=== PATIENT | female | born 1955 | race Caucasian/White ===

== ENCOUNTER 2016-11-15 10:02 | Outpatient (CLI) | payer MEDICARE ==
[~2016-11-15] VITALS: Ht 180.3 cm; Wt 119.4 kg
[~2016-11-15 10:02] MED LIST: AMAN100T PO; AMIT25TA9 PO; ASP81CT PO; ASP81TEC PO; BACL10TA PO; CALC-69 PO; CHOL200018 PO; CHOL400C8 PO; CPR250T PO; DIAZ-345 PO; DOXY100C2 PO; ENAL10TA PO; ENALAPRIL; ERGO2000 PO; ESTR0.5T PO; ESTR1PAT28 TOP; EXPECTORANT PO; FLC1T PO; FOLI1TAB24 PO; HCT25T PO; MDR10T PO; MECL25TA56 PO; MEDR2.5T PO; MELO-195 PO; METO100T2 PO; METO25TA PO; METO25TA2 PO; MTX2.5T PO; MULT1CAP27 PO; NAPR220C11 PO; OMEP-10 PO; OMG1KC PO; POLY17PO23 PO; PRAV10TA23 PO; PRAV40TA PO; PRAV80TA2 PO; PRD20T PO; SCP1.5TD TOP; SIMV80TA3 PO; TRZS2T PO; [UNRECOGNIZED DRUG - OTHER] PO
--- OUTSIDE RECORDS SUMMARY | 2016-11-15 10:06 | XMS REPORT | Continuity of Care Document ---
Author Author [facility] Organization [facility] Address Unknown Phone Unavailable Care Team Providers Care Assistant Manager Retail Name Role Phone Unverified, Unverified PCP Unavailable Source Comments Some departments are not documenting in the electronic medical record. If you do not see the information that you expected, contact Release of Information in the Health Information Management department at [phone] for further assistance in locating additional records.[facility] Active Allergies and Adverse Reactions No Known Allergies Current Medications Prescription Sig. Disp. Refills Start End Date Status Date Enalapril Maleate (Bulk) Use as directed. Active 100 % Powd metoprolol XL (TOPROL XL) Take 100 mg by mouth Active 100 mg tablet daily. hydrochlorothiazide Take 25 mg by mouth Active (HYDRODIURIL) 25 mg daily. tablet pravastatin (PRAVACHOL) Take 10 mg by mouth Active 10 mg tablet daily. medroxyPROGESTERone Take 10 mg by mouth Active (PROVERA) 10 mg tablet daily. doxycycline (VIBRAMYCIN) Take 100 mg by mouth Active 100 mg tablet twice daily. estradiol(+) (CLIMARA) Apply 1 Patch to top of Active 0.025 mg/24 hr patch skin as directed every 7 days. MULTIVITAMINS WITH Take by mouth. Active FLUORIDE (MULTI-VITAMIN PO) NAPROXEN SODIUM (ALEVE Take by mouth. Active PO) OMEPRAZOLE (PRILOSEC PO) Take by mouth. Active DOCOSAHEXANOIC ACID/EPA Take by mouth. Active (FISH OIL PO) ERGOCALCIFEROL (VITAMIN Take by mouth. Active D2) (VITAMIN D PO) methotrexate 2.5 mg Take 4 tab one day weekly 48 Tab 3 08/22/20 Active tablet 12 folic acid (FOLVITE) 1 mg Take 1 Tab by mouth 90 Tab 3 08/22/20 Active tablet daily. 12 amitriptyline (ELAVIL) 25 Take 1 Tab by mouth at 90 Tab 3 08/22/20 Active mg tablet bedtime daily. 12 Amantadine 100 mg Tab Take 1 Tab by mouth twice 180 Tab 3 08/22/20 Active daily. 12 baclofen (LIORESAL) 10 mg Take 1 Tab by mouth five 750 Tab 3 12/23/19 Active tablet times daily. 13 Terazosin 2 mg Tab Take 1 Tab by mouth 90 Tab 3 02/21/20 Active daily. 13 Active Problems Problem Noted Date MS (multiple sclerosis) ([facility]) 08/22/2012 Overview: Multiple Sclerosis Subtype: Secondary progressive Symptom onset: 1977 Date of Diagnosis: 2004 Prior Medication failures:Rebif Present DMD Methotrexate Last MRI 2010 Multiple focal areas of abnormal signal intensity in the periventricular white matter with no change since 2006 L ast Assessment & Plan: Very slow progression One brief spell of vertigo Continue Baclofen and Vitamin D Continue quarterly CBC, CMP Continue Amantadine Continue to exercise Social History Tobacco Use Types Packs/Day Years Used Date Never Smoker Alcohol Use Drinks/Week oz/Week Comments No Last Filed Vital Signs Vital Sign Reading Time Taken Blood Pressure 131/85 02/20/2013 11:58 AM CDT Pulse 75 02/20/2013 11:58 AM CDT Temperature - - Respiratory Rate - - Height 1.803 m (5' 11") 02/20/2013 11:58 AM CDT Weight 118.842 kg (262 lb) 02/20/2013 11:58 AM CDT Body Mass Index 36.56 02/20/2013 11:58 AM CDT Oxygen Saturation - - Plan of Care Health Maintenance Due Date Last Done Comments Physical (Comprehensive) 1961 Exam Pertussis Vaccine 1965 Tetanus Vaccine 1971 Cervical Cancer Screening 1975 Breast Cancer Screening 1994 Colorectal Cancer 2004 Screening Shingles Vaccine 2014 Influenza Vaccine 06/07/2016 Results from Last 3 Months Not on file
[2016-11-15] MEDS ORDERED: ATOR40TA70 PO (10:23)
[2016-11-15] MEDS ORDERED: CALC-794 PO (10:23)
[2016-11-15] MEDS ORDERED: TRAM50TA2 PO (10:23)
[2016-11-15 10:30] VITALS: BP 127/87
[2016-11-15 11:09] LABS: BASOPHILS % (AUTO) 1 % (0-10); EOSINOPHILS # (AUTO) 0.2 10^3/uL (0.0-0.3); EOSINOPHILS % (AUTO) 6 % (0-10); LYMPHOCYTES # (AUTO) 1.3 X 10^3 (1.0-4.0); LYMPHOCYTES % (AUTO) 29 % (12-44); MEAN CORPUSCULAR HEMOGLOBIN 29 PG (25-34); MEAN CORPUSCULAR HGB CONC 34 G/DL (32-36); MEAN CORPUSCULAR VOLUME 86 FL (80-99); MEAN PLATELET VOLUME 10.2 FL (7.4-10.4); MONOCYTES # (AUTO) 0.4 X 10^3 (0.0-1.0); MONOCYTES % (AUTO) 9 % (0-12); NEUTROPHILS # (AUTO) 2.4 X 10^3 (1.8-7.8); NEUTROPHILS % (AUTO) 55 % (42-75); PLATELET COUNT 297 10^3/uL (130-400); RED BLOOD COUNT 4.58 10^6/uL (4.35-5.85); WHITE BLOOD COUNT 4.3 10^3/uL (4.3-11.0)
[2016-11-15 11:14] LABS: BILIRUBIN,URINE NEGATIVE (NEGATIVE); KETONES,URINE NEGATIVE (NEGATIVE); LEUKOCYTE ESTERASE ,URINE NEGATIVE (NEGATIVE); NITRITE,URINE NEGATIVE (NEGATIVE); PH,URINE 7 (5-9); PROTEIN,URINE NEGATIVE (NEGATIVE); UROBILINOGEN,URINE NORMAL (NORMAL)
[2016-11-15 11:20] LABS: INR 0.9 (0.8-1.4); PROTHROMBIN TIME PATIENT 11.6 SEC (12.2-14.7)
[2016-11-15 11:26] LABS: ANION GAP 10 MMOL/L (5-14); BLOOD UREA NITROGEN 16 MG/DL (7-18); BUN/CREATININE RATIO 20; CALCIUM 9.2 MG/DL (8.5-10.1); CARBON DIOXIDE 26 MMOL/L (21-32); CHLORIDE 104 MMOL/L (98-107); CREATININE SERUM 0.81 MG/DL (0.60-1.30); GFR ESTIMATED > 60; GLUCOSE 90 MG/DL (70-105); POTASSIUM 3.6 MMOL/L (3.6-5.0); SODIUM 140 MMOL/L (135-145)
[2016-11-15 11:28] LABS: WBC,URINE RARE /HPF
--- NOTE | 2016-11-15 15:05 | Diagnostic Imaging Report ---
INDICATION: Preop knee replacement. FINDINGS: The lungs are clear. The heart and vessels are normal. There is no effusion or pneumothorax. IMPRESSION: No acute-appearing abnormality. Dictated by: Dictated on workstation # [id number]
== END 2016-11-15 15:24 | disposition home or self-care (01) ==
LOC: PREOP 10:02
PROVIDERS: ATTEND Orthopaedic Surgery
DX: Z01.818 Encounter for other preprocedural examination (principal); Z01.812 Encounter for preprocedural laboratory examination; M17.12 Unilateral primary osteoarthritis, left knee; M79.662 Pain in left lower leg; R53.83 Other fatigue; I10 Essential (primary) hypertension; Z22.322 Carrier or suspected carrier of Methicillin resistant Staphylococcus aureus; Z11.2 Encounter for screening for other bacterial diseases
CPT/HCPCS: 36415; 71020; 80048; 81000; 85025; 85610; 86850; 86900; 86901; 87081; 93005

== ENCOUNTER 2016-11-27 08:49 | Inpatient (IN) | payer MEDICARE ==
[~2016-11-27] VITALS: Ht 180.3 cm; Wt 119.4 kg
[~2016-11-27 08:49] MED LIST changes: +ATOR40TA70 PO; +CALC-794 PO; +TRAM50TA2 PO
[2016-11-27] MEDS ORDERED: ROPIVACAINE 5MG/ML 30ML VIAL ONE (09:28)
[2016-11-27] MEDS ORDERED: MIDAZOLAM 2 MG/2 ML (VERSED) VIAL ONE (09:29)
[2016-11-27] MEDS ORDERED: ceFAZolin 2 GM/50 ML NS 50 ML IV ONE (09:33)
[2016-11-27 09:40] VITALS: BP 134/85
[2016-11-27] MEDS ORDERED: CATHETER FLUSH 10 ML SYR IV PRN (09:45)
[2016-11-27] MEDS ORDERED: ceFAZolin 2 GM/NS 50 ML IV ONE (09:45)
[2016-11-27] MEDS ORDERED: GENTAMICIN 40 MG/ML 2 ML INJ SDV ONE ×2 (09:47→09:48)
[2016-11-27] MEDS ORDERED: SEVOFLURANE (ULTANE) 15 ML INHAL SOLN ONE ×2 (10:11→12:10)
[2016-11-27] MEDS ORDERED: LACTATED RINGERS 1,000 ML IV ONE ×3 (10:11→12:10)
[2016-11-27] MEDS ORDERED: ONDANSETRON 4 MG/2 ML (SDV) Z0FRAN ONE (10:11)
[2016-11-27] MEDS ORDERED: fentaNYL INJECTION 100 MCG/2 ML AMP ONE (10:11)
[2016-11-27] MEDS ORDERED: proPOfol 200 MG/20 ML (DIPRIVAN) VIAL IV ONE ×2 (10:11→11:00)
[2016-11-27] MEDS: LACTATED RINGERS 1,000 ML IV SCH ×2 (10:36→12:30)
--- NOTE | 2016-11-27 10:36 | Progress Note-Pre Operative ---
Pre-Operative Progress Note H&P Reviewed The H&P was reviewed, patient examined and no changes noted. Date H&P Reviewed: Nov 27, 2016 Time H&P Reviewed: 10:00 Pre-Operative Diagnosis: Primary Osteoarthritis Left Knee GREGORY MERCHANT DO Nov 27, 2016 10:36 am
[2016-11-27] MEDS ORDERED: TXA MC ONE ×5 (11:45)
[2016-11-27] MEDS ORDERED: INTRA ARTICULAR MC ONE ×5 (11:45)
[2016-11-27 12:00] VITALS: BP 116/58
--- NOTE | 2016-11-27 12:56 | Progress Note-Post Operative ---
Post-Operative Progess Note Project Intern Nik Cook HAMMER FITTERJessicaC Pre-Operative Diagnosis Primary Osteoarthritis Left Knee Post-Operative Diagnosis SAME Post-Op Procedure Note Date of Procedure: Nov 27, 2016 Name of Procedure: Left TKA Anesthesia Type general Estimated blood loss (mL): 150 NIK COOK APRN Nov 27, 2016 12:56 pm
[2016-11-27] MEDS ORDERED: PROMETHAZINE INJ 25 MG/ML (PHENERGAN) AMP IVP PRN ×2 (13:00)
[2016-11-27] MEDS ORDERED: morphine INJ 10 MG/ML 1ML (SYR OR VIAL) IVP PRN (13:00)
[2016-11-27] MEDS ORDERED: ONDANSETRON 4 MG/2 ML (SDV) Z0FRAN IVP PRN (13:00)
[2016-11-27] MEDS ORDERED: D5 1/2 NS 1000 ML IV SOLUTION 1,000 ML IV SCH (13:00)
[2016-11-27] MEDS ORDERED: diphenhydrAMINE 50 MG/ML INJ (BENADRYL) IV PRN (13:00)
[2016-11-27] MEDS ORDERED: BISACODYL 10 MG SUPP (DULCOLAX) PR PRN (13:00)
[2016-11-27] MEDS ORDERED: ONDANSETRON 4 MG/2 ML (SDV) Z0FRAN IV ONE (13:15)
[2016-11-27] MEDS ORDERED: fentaNYL INJECTION 100 MCG/2 ML AMP IV PRN (13:15)
[2016-11-27] MEDS ORDERED: morphine INJ 10 MG/ML 1ML (SYR OR VIAL) IV PRN (13:15)
--- OUTSIDE RECORDS SUMMARY | 2016-11-27 13:23 | XMS REPORT | Continuity of Care Document ---
Author Author [facility] Organization [facility] Address Unknown Phone Unavailable Care Team Providers Care Classification Inspector Name Role Phone Unverified, Unverified PCP Unavailable Source Comments Some departments are not documenting in the electronic medical record. If you do not see the information that you expected, contact Release of Information in the Health Information Management department at [phone] for further assistance in locating additional records.[facility] Active Allergies and Adverse Reactions No Known [...] Problems Problem Noted Date MS (multiple sclerosis) ([facility]) 08/22/2012 Overview: Multiple Sclerosis Subtype: Secondary progressive [...]
--- NOTE | 2016-11-27 13:35 | Anesthesia-Peripheral Nerve Bl ---
Procedure Start/Stop Time Date of Procedure: Nov 27, 2016 Start Time: 09:43 Stop Time: 09:55 Peripheral Nerve Block Peripheral Nerve Blockade Risk/Benefits/Alternatives discussed, including IV injection leading to complications or seizures, nerve irritation or damage, pneumothorax, total spinal anesthesia, injection, and/or bleeding. Side Confirmed: LEFT Indication: Req Pain Mgmt by Surgeon Specifically requested for management of pain by:dr reyes Patient Condition Vital Signs Vital Signs Date Time Temp Pulse Resp B/P Pulse Ox O2 Delivery O2 Flow Rate FiO2 11/27/16 09:40 98.0 78 16 134/85 98 Room Air Patient Condition: Awake Procedure Prepartation: Chlorhexidine Position: Supine Mathews: Short-bevel Needle (s) Size: 22g 2" Technique: Injection through needle, Nerve Stimulation Motor response or parethesia o: quad response mA: 0.4 Depth (cm): 2 Sedation Given: Midazolam Dose (mg/mcg): 2 Injectate: ropivacaine Concentration %: 0.5 Volume (ml): 30 Epinephrine used: No Narrative Injection was made incrementally with constant monitoring. Blood Aspirated: Yes Pain on injection noted: No Normal Resistance on injection: Yes Events Events: None:easy well tolerated Sucess: Full evaluation-pending Patient Conditon Post Peripheral Nerve Block Post Peripheral Nerve Block Vital Signs: Blood Pressure: Systolic Diastolic Heart Rate Blood Pressure Systolic: 134 Blood Pressure Diastolic: 85 Pulse Rate (adult): 78 SWETHA CANO CRNA Nov 27, 2016 13:35
--- NOTE | 2016-11-27 14:02 | Diagnostic Imaging Report ---
INDICATION: Left knee replacement. AP and lateral views of the left knee are obtained. There are postoperative changes of total left knee arthroplasty. Prosthetic components are in good alignment. There is gas and fluid within the joint space with anterior skin jerry noted. No fracture is seen. IMPRESSION: Postoperative changes of recent total left knee arthroplasty without evidence of acute complication. Dictated by: Dictated on workstation # [id number]
[2016-11-27] MEDS: HYDROcodone/APAP 10 MG/325 MG (LORTAB) TAB PO PRN ×2 (14:51→18:31)
[2016-11-27] MEDS: BACLOFEN 10 MG (LIORESAL) TAB PO SCH ×2 (14:51→20:42)
[2016-11-27] MEDS ORDERED: METO-333 PO (15:14)
[2016-11-27] MEDS ORDERED: OMEP20CA12 PO (15:14)
[2016-11-27] MEDS ORDERED: ESTR0.5T PO (15:14)
[2016-11-27] MEDS ORDERED: HYDR25TA4 PO (15:14)
[2016-11-27] MEDS ORDERED: DOXY100C2 PO (15:14)
[2016-11-27] MEDS ORDERED: ENAL10TA PO (15:14)
[2016-11-27] MEDS ORDERED: AMIT25TA9 PO (15:14)
[2016-11-27] MEDS ORDERED: BACL10TA PO (15:14)
[2016-11-27] MEDS ORDERED: MEDR5TAB4 PO (15:14)
[2016-11-27] MEDS ORDERED: TERA2CAP4 PO (15:14)
[2016-11-27] MEDS ORDERED: MECLIZINE 25 MG (ANTIVERT) TAB PO PRN (15:30)
[2016-11-27] MEDS ORDERED: POLYETHYLENE GLYCOL 17 GM (MIRALAX) PACK PO PRN (15:30)
[2016-11-27] MEDS ORDERED: NON-FORMULARY MEDICATION 1 EA EA (Doxycycline Hyclate 100 MG) PO SCH (15:30)
[2016-11-27 16:00] VITALS: BP 121/63
[2016-11-27] MEDS: KETOROLAC 15 MG/ML VIAL IVP PRN (17:54)
[2016-11-27] MEDS: ceFAZolin 2 GM/50 ML NS 50 ML IV SCH (17:56)
[2016-11-27] MEDS: D5 1/2 NS 1000 ML IV SOLUTION 1,000 ML IV SCH (17:56)
[2016-11-27 20:00] VITALS: BP 97/56
[2016-11-27] MEDS: AMITRIPTYLINE 25 MG (ELAVIL) TAB PO SCH (20:42)
[2016-11-27] MEDS: meTOprolol TARTRATE 25 MG (LOPRESSOR) TABLET PO SCH (20:43)
[2016-11-27] MEDS: TERAZOSIN 2 MG (HYTRIN) CAP PO SCH (20:43)
[2016-11-27] MEDS: PANTOPRAZOLE 20 MG TABLET (PROTONIX) PO SCH (20:43)
[2016-11-27] MEDS ORDERED: OMEPRAZOLE 20 MG (PriLOSEC) CAP NON-FORMULARY PO SCH (21:00)
[2016-11-28] VITALS: BP 117/59
[2016-11-28] MEDS: ceFAZolin 2 GM/50 ML NS 50 ML IV SCH (01:51)
[2016-11-28] MEDS: HYDROcodone/APAP 10 MG/325 MG (LORTAB) TAB PO PRN ×4 (03:40→18:14)
[2016-11-28 04:00] VITALS: BP 119/67
[2016-11-28 04:56] LABS: MEAN PLATELET VOLUME 10.2 FL (7.4-10.4); RED BLOOD COUNT 3.99 10^6/uL (4.35-5.85); RED CELL DISTRIBUTION WIDTH 13.2 % (10.0-14.5); WHITE BLOOD COUNT 6.3 10^3/uL (4.3-11.0)
[2016-11-28 05:13] LABS: INR 1.1 (0.8-1.4); PROTHROMBIN TIME PATIENT 13.6 SEC (12.2-14.7)
[2016-11-28 05:19] LABS: ANION GAP 12 MMOL/L (5-14); BLOOD UREA NITROGEN 10 MG/DL (7-18); BUN/CREATININE RATIO 13; CALCIUM 8.6 MG/DL (8.5-10.1); CARBON DIOXIDE 25 MMOL/L (21-32); CHLORIDE 103 MMOL/L (98-107); CREATININE SERUM 0.79 MG/DL (0.60-1.30); GFR ESTIMATED > 60; GLUCOSE 91 MG/DL (70-105); POTASSIUM 3.3 MMOL/L (3.6-5.0); SODIUM 140 MMOL/L (135-145)
[2016-11-28] MEDS: D5 1/2 NS 1000 ML IV SOLUTION 1,000 ML IV SCH ×2 (05:45→18:12)
[2016-11-28 08:00] VITALS: BP 118/72
[2016-11-28] MEDS: ENOXAPARIN 40 MG/0.4 ML (LOVENOX) SYR SC SCH (08:07)
[2016-11-28] MEDS: ASPIRIN E.C. 325 MG (ECOTRIN) TABLET PO SCH (08:07)
[2016-11-28] MEDS: BACLOFEN 10 MG (LIORESAL) TAB PO SCH ×3 (08:08→20:36)
[2016-11-28] MEDS: meTOprolol TARTRATE 25 MG (LOPRESSOR) TABLET PO SCH ×2 (08:10→20:36)
[2016-11-28] MEDS: MEDROXYPROGESTERONE 5 MG TAB PO SCH (08:13)
[2016-11-28] MEDS: ESTRADIOL 0.5 MG TAB PO SCH (08:16)
[2016-11-28] MEDS ORDERED: MEDROXYPROGESTERONE ACETATE PO SCH (09:00)
--- NOTE | 2016-11-28 09:42 | Anesthesia-General Post-Op ---
General Patient Condition Mental Status/LOC: Same as Preop Cardiovascular: Satisfactory Nausea/Vomiting: Absent Respiratory: Satisfactory Pain: Controlled Complications: Absent Post Op Complications Complications None Follow Up Care/Instructions Patient Instructions None needed. Anesthesia/Patient Condition Patient Condition Patient is doing well, no complaints, stable vital signs, no apparent adverse anesthesia problems. No complications reported per nursing. D/C home per [facility] Criteria: No CAMPOS TRINH CRNA Nov 28, 2016 09:42
--- NOTE | 2016-11-28 09:42 | Physical Therapy Evaluation ---
PT Evaluation-General Medical Diagnosis Admission Date Nov 27, 2016 at 08:49 Onset Date: Nov 27, 2016 Therapy Diagnosis Therapy Diagnosis: Rehab s/p (L) TKR Height/Weight Height (Feet): 5 Height (Inches): 11.00 Weight (Pounds): 263 Weight (Ounces): 5.0 Precautions Precautions/Isolations: Standard Precautions Weight Bear Status Weight Bearing Restriction: Weight Bearing/Tolerated Referral Physician: Galindo Acosta DO Reason for Referral: Evaluation/Treatment Medical History Additional Medical History (R) TKR (05), MS, vertigo Current History post op (L) TKR Reviewed History: Yes Social History Home: Single Level Prior/Core FIM Prior Level of Function Functional [place] Measure 0=Not Assessed/NA 4=Minimal Assistance 1=Total Assistance 5=Supervision or Setup 2=Maximal Assistance 6=Modified [place] 3=Moderate Assistance 7=Complete [place] Bed Mobility: 6 Transfers (B,C,W/C) (FIM): 6 Gait: 6 Locomotion: 6 pt uses at 4ww and a power chair as needed. PT Evaluation-Current Subjective 5/10 (L) knee pain during ambulation. Pain Numeric Pain Scale: 5-Moderate Pain Location: Left Location Body Site: Knee Pain Description: Ache, Dull Pt/Family Goals Return home. Objective Patient Orientation: Person, Place, Time, Situation Problem Solving: Good Attachments: IV ROM/Strength ROM Lower Extremities (L) knee PROM 0-65deg Strenght Lower Extremities 3-/5 (L) hip and knee MMT Neuromuscular (Tone, Coordination, Reflexes) Foot drop (L), wears an AFO Sensory Sensation Right Lower Extremit: Intact Sensation Left Lower Extremity: Intact Transfers Functional [place] Measure 0=Not Assessed/NA 4=Minimal Assistance 1=Total Assistance 5=Supervision or Setup 2=Maximal Assistance 6=Modified [place] 3=Moderate Assistance 7=Complete [place] Transfers (B, C, W/C) (FIM): 5 Scootin Rollin Supine to/from Sit: 5 Sit to/from Stand: 5 Gait Mode of Locomotion: Both Anticipated Mode of Locomotion: Walk Gait (FIM): 1 Distance (FIM): 1=up to 49 ft Distance: 30FT Gait Level of Assist: 1 Gait Persons Needed: 1 Gait Assistive Device: Walker 4 Wheeled Comments/Gait Description Became dizzy/lightheaded after 30ft. Back to bed. Stairs If not tested on admit;explain Not assessed due to dizziness and needing to sit. Balance Sitting Static: Normal Sitting Dynamic: Normal Standing Static: Good Standing Dynamic: Fair Assessment/Needs Pt has limited (L) LE strength and limited knee flexion tolerance. Rehab Potential: Good PT Short Term Goals Short Term Goals Time Frame: Dec 05, 2016 Transfers (B,C,W/C) (FIM): 6 Gait (FIM): 3 Distance (FIM): 3=150 ft Gait Level of Assist: 3 Gait Assistive Device: Walker 4 Wheeled # of Steps: 4 Stairs Level of Assist: 5 PT Plan Problem List Problem List: Activity Tolerance, Functional Strength, Safety, Gait, Transfer, ROM Treatment/Plan Treatment Plan: Continue Plan of Care Treatment Duration: Dec 05, 2016 # of days/week 7 Visits Per Week: 12 Pt/Family Agrees w/Plan: Yes Time/GCodes Time In: 09 Time Out: 09 Total Billed Treatment Time: 40 Total Billed Treatment 1, evlowc 30, gt 10 ROBERTO PARRISH PT Nov 28, 2016 09:42
[2016-11-28] MEDS: HYDROCHLOROTHIAZIDE 25 MG (HCTZ) TAB PO SCH (11:18)
[2016-11-28] MEDS: ENALAPRIL 10 MG (VASOTEC) TAB PO SCH (11:19)
[2016-11-28 12:00] VITALS: BP 128/75
--- NOTE | 2016-11-28 12:28 | Progress Note (SOAP) ---
Subjective Subjective/Events-last exam POD #1 s/p left tKA, doing well, no complaints. Objective Exam Vital Signs Date Time Temp Pulse Resp B/P Pulse Ox O2 Delivery O2 Flow Rate FiO2 11/28/16 08:00 98.7 87 18 118/72 94 Room Air 11/28/16 04:00 97.9 87 18 119/67 97 Room Air 11/28/16 00:00 98.6 80 18 117/59 95 Room Air 11/27/16 20:00 98.5 75 18 97/56 95 Room Air 11/27/16 16:00 96.9 73 16 121/63 98 Room Air 11/27/16 13:50 96 Room Air I & O 11/28/16 06:59 Intake Total 3530 ml Output Total 1500 ml Balance 2030 ml Capillary Refill : General Appearance: No Apparent Distress Neurologic/Psychiatric: Alert Oriented x3 No Motor/Sensory Deficits Normal Mood/Affect Skin: Normal Color Warm/Dry (dressing left knee spotty sang drainage, controlled, otherwise dry) Results Lab Laboratory Tests 11/28/16 04:19: Anion Gap 12, BUN/Creatinine Ratio 13, Blood Urea Nitrogen 10, Calcium Level 8.6 , Carbon Dioxide Level 25, Chloride Level 103, Creatinine 0.79, Estimat Glomerular Filtration Rate > 60, Glucose Level 91, Hematocrit 35, Hemoglobin 11.5, INR Comment 1.1, Mean Corpuscular Hemoglobin 29, Mean Corpuscular Hemoglobin Concent 33, Mean Corpuscular Volume 87, Mean Platelet Volume 10.2, Platelet Count 258, Potassium Level 3.3L, Prothrombin Time 13.6, Red Blood Count 3.99L, Red Cell Distribution Width 13.2, Sodium Level 140, White Blood Count 6.3 Assessment/Plan Assessment/Plan Assess & Plan/Chief Complaint A: s/p left TKA POD 1 P: plan to Dc to home with [facility] tomorrow or Saturday Diagnosis/Problems: Clinical Quality Measures DVT/VTE Risk/Contraindication: Risk Factor Score Per Nursin RFS Level Per Nursing on Admit: 4+=Very High NIK COOK APRN Nov 28, 2016 12:28 pm
[2016-11-28] MEDS ORDERED: DOXYCYCLINE 100 MG (VIBRAMYCIN) TABLET PO SCH (13:00)
--- NOTE | 2016-11-28 13:15 | OPERATIVE REPORT ---
PROCEDURE PHYSICIAN: GREGORY MERCHANT DATE OF PROCEDURE: 11/27/2016 PREOPERATIVE DIAGNOSIS: Primary osteoarthritis, left knee. POSTOPERATIVE DIAGNOSIS: Primary osteoarthritis, left knee. PROCEDURE: Total knee arthroplasty. SURGEON: Karla BARNARDGROCERY CLERK SELLING: NAM Jaimes Surgical cutter first duties: Leonides Cooper was utilized throughout the entire procedure for the patient positioning, retraction, placement of total knee implant components, wound closure, dressing application and patient transfer. ANESTHESIA: General with femoral nerve block INDICATIONS AND FINDINGS: The patient is a 61-year-old and female seen with chief complaint of progressive left knee pain, nonresponsive to conservative treatment. The patient demonstrated valgus deformity with collapse of the lateral compartment. The patient was taken to surgery where a total knee arthroplasty was performed without complication on the left, utilizing the Biomet AutomateItguard total knee system utilizing a press-fit 72.5 mm femoral component. A cemented 75 mm fixed I-Beam tibial component, a 34 mm three-pronged, all polyethylene cemented thin patellar component with a 10 mm anterior stabilized tibial bearing implant. Palacos bone cement was utilized as well. PROCEDURE IN DETAIL: The patient was seen by anesthesia preoperatively and under Doppler guidance a femoral nerve block was performed on the left to decrease postop pain and decrease amount of medication required during the surgical procedure. The patient was transported the operating room, where general inhalation anesthetic was administered. A well-padded pneumatic tourniquet was placed about the upper aspect of the left thigh. A ChloraPrep and sterile drape of the left lower extremity was performed. The left leg was elevated, exsanguinated, and the tourniquet inflated to 300 mmHg pressure. An anterior longitudinal midline incision was made over the anterior surface of the left knee. The incision was deepened through a medial parapatellar incision. Soft tissue periosteal dissection was performed off the proximal medial tibia and the patella was subluxed laterally. Osteophytes formation of the distal femur was removed with a bone rongeur. A photogrammetry airplane pilot hole was then drilled in the distal femur and intramedullary edwin was inserted utilizing a 6 degrees valgus cutting angle, a distal femoral cutting guide was assembled and distal femoral osteotomy was completed. The distal femur was sized to a 72.5 mm femoral component. A four-way cutting guide was assembled. Anterior, posterior and chamfer cuts of the distal femur were made. The tibia was subluxed anteriorly. Remnants of the medial and lateral menisci as well as the anterior cruciate ligament were excised. A photogrammetry airplane pilot hole then drilled in the proximal tibia and intramedullary edwin was inserted measuring off the exposed bone over the lateral tibial plateau. A proximal tibial cutting guide was assembled and a proximal tibial osteotomy was completed. Attempts were made at placing the knee in full extension with a 10 mm spacer. The patient continued to have lack of full extension; therefore additional 2 mm of bone was resected from the distal femur. An additional chamfer cuts were made. The knee was then sized and could be extended with 10 mm spacer in extension, along with instability in flexion. Osteophyte formation from the patellar rim was removed with a bone rongeur. The posterior aspect of the patella was resected through a cutting guide and drilled through a drill guide. Provisional components were inserted. The knee was cycled through a range of motion. The rotation of the tibial component was noted and marked on the proximal tibia. The proximal tibia was then broached to accept the I-Beam stem portion of the tibial implant. The bony surfaces were irrigated extensively with normal saline solution. Palacos bone cement was then mixed. This was pressurized in the proximal tibia and the tibial component was cemented in place. The femoral component was press-fit in place. The patellar component was cemented in place and held with a clamp. The knee was then maintained in full extension with the provisional 10 mm tibial bearing implant. Excessive cement was removed and the cement was allowed to set. The provisional tibial bearing implant was then removed. An anterior stabilized tibial bearing implant was then inserted and locked anteriorly with a locking bar. The knee was cycled through a range of motion with central tracking of the patella and full extension obtained with no instability on drawer testing and knee in flexion. The tourniquet was released. Hemostasis was obtained with electrocautery. The knee was placed in 90 degrees of flexion. The medial retinaculum was closed with multiple interrupted [id number] sutures of number 1 Vicryl reinforced with a running suture of number 1 STRATAFIX. The knee itself was infiltrated with combination of Toradol, ropivacaine, morphine and tranexamic acid. Subcutaneous tissues were closed with interrupted 0 and 2-0 Vicryl suture. The skin was closed with stainless steel jerry. An Adaptic Neosporin bulky dressing was placed about the left knee. The patient was awakened and was transported postop recovery with anesthesia personnel present in satisfactory condition. Job ID: [id number] Dictated Date: 11/27/2016 23:57:50 Per Assessment Nurse Date: 11/28/2016 13:03:32 / [email or web address]
--- NOTE | 2016-11-28 13:55 | Physical Therapy Daily Note ---
PT Daily Note-Current Subjective Patient in recliner pre tx, just finishing up with OT, agrees to PT. Pain Numeric Pain Scale: 2 Location: Left Location Body Site: Knee Appearance Patient in bed post tx with nurse call, phone, halle, SCD's, CPM donned increased to 56 degrees Mental Status Patient Orientation: Normal For Age Attachments: IV Transfers Functional [place] Measure 0=Not Assessed/NA 4=Minimal Assistance 1=Total Assistance 5=Supervision or Setup 2=Maximal Assistance 6=Modified [place] 3=Moderate Assistance 7=Complete IndependenceIRFPAI Quality Coding Scale 6 Independent with activity with or without an assistive device 5 Patient requires set up or clean up by helper. Patient completes activity by themselves 4 Supervision or touching assist (CGA). [place] provide cues , steadying assist 3 The helper provides less than half the effort to complete the activity 2 The helper provides more than half the effort to complete the activity 1 Dependent. The helper does all the effort to complete an activity 7 Patient refused to complete or attempt activity 9 The patient did not perform the activity before the current illness or injury 88 Not attempted due to Medical conditions or safety concerns Transfers (B, C, W/C) (FIM): 4 Scootin Rollin Supine to/from Sit: 5 Sit to/from Stand: 4 needs min assist to get leg into and out of bed Gait Training Gait (FIM): 1 Distance: 40' Gait Level of Assist: 4 Gait Persons Needed: 1 Gait Assistive Device: FWW CGA, foot drop on left side with hip externally rotated, slow, antalgic Exercises Supine Ex: Ankle pumps, Quad Set, Heel Slides, Short Arc Quads, Straight leg raise Supine Reps: 10 Treatments bed mobility and transfers, ambulation, functional strengthening Assessment Current Status: Fair Progress improved ambulation PT Short Term Goals Short Term Goals Time Frame: Dec 05, 2016 Transfers (B,C,W/C) (FIM): 6 Gait (FIM): 3 Distance (FIM): 3=150 ft Gait Level of Assist: 3 Gait Assistive Device: Walker 4 Wheeled # of Steps: 4 Stairs Level of Assist: 5 PT Plan Problem List Problem List: Activity Tolerance, Functional Strength, Safety, Balance, Gait, Transfer, Bed Mobility, ROM Treatment/Plan Treatment Plan: Continue Plan of Care Treatment Plan: Bed Mobility, Education, Functional Activity [place], Functional Strength, Gait, Safety, Therapeutic Exercise, Transfers Treatment Duration: Dec 05, 2016 Visits Per Week: 12 Safety Risks/Education Patient Education: Gait Training, Transfer Techniques, Correct Positioning, Safety Issues Teaching Recipient: Patient Teaching Methods: Demonstration, Discussion Response to Teaching: Reinforcement Needed Time/GCodes Time In: 1330 Time Out: 1348 Total Billed Treatment Time: 18 Total Billed Treatment 1 visit GT 18 min ALEXA DANGELO PT Nov 28, 2016 13:55
[2016-11-28] MEDS: DIAZEPAM 5 MG (VALIUM) TABLET PO PRN (14:26)
--- NOTE | 2016-11-28 14:29 | Occupational Therapy Eval ---
OT Evaluation-General/PLF Medical Diagnosis Admission Date Nov 27, 2016 at 08:49 Medical Diagnosis: left TKA Onset Date: Nov 27, 2016 Therapy Diagnosis Therapy Diagnosis: decreased self care skills Height/Weight Height (Feet): 5 Height (Inches): 11.00 Weight (Pounds): 263 Weight (Ounces): 5.0 Precautions Precautions/Isolations: Standard Precautions Safety Interventions: None Weight Bear Status Weight Bearing Restriction: Weight Bearing/Tolerated Referral Physician: Galindo Acosta DO Medical History Additional Medical History MS, right TKA Current History pt s/p elective left TKA Social History Home: Single Level Current Living Status: Spouse Entry Into Home: Ramp ADL-Prior Level of Function ADL PLOF Comments Pt reports being independent with basic self care prior to surgery. Pt uses 4WW mostly, but has power w/c if needed. Pt states she uses chair to sit while cooking. Does light cleaning tasks. Has to take rest breaks during functional tasks secondary to fatigue from MS. DME/Equipment: Bath Bench, Grab Bars, Tall Toilet, Tub/Shower Drive Self: Yes OT Current Status Subjective Pt agrees to therapy this pm. Requests to use BSC. Pt report 3/10 left knee pain. Mental Status/Objective Patient Orientation: Person, Place, Time, Situation Attachments: IV Current Glasses/Contacts: Yes ADL-Treatment ADL-Current Pt sit to stand from chair with CGA. Transfer to BSC with minimal assistance using 4WW. Pt has slow movements, cues for safety. Pt able to complete toileting hygiene without assistance. CGA for standing balance during clothing management. Transfer back to chair with CGA. Pt sitting in chair with PT present after session. Functional [place] Measure 0=Not Assessed/NA 4=Minimal Assistance 1=Total Assistance 5=Supervision or Setup 2=Maximal Assistance 6=Modified [place] 3=Moderate Assistance 7=Complete IndependenceIRFPAI Quality Coding Scale 6 Independent with activity with or without an assistive device 5 Patient requires set up or clean up by helper. Patient completes activity by themselves 4 Supervision or touching assist (CGA). [place] provide cues , steadying assist 3 The helper provides less than half the effort to complete the activity 2 The helper provides more than half the effort to complete the activity 1 Dependent. The helper does all the effort to complete an activity 7 Patient refused to complete or attempt activity 9 The patient did not perform the activity before the current illness or injury 88 Not attempted due to Medical conditions or safety concerns Toileting (FIM): 4 (CGA) Toilet/Commode Transfer (FIM): 4 Education OT Patient Education: Rehab process Teaching Recipient: Patient Teaching Methods: Discussion Response to Teaching: Verbalize Understanding OT Short Term Goals Short Term Goals Transfers (B,C,W/C) (FIM): 6 1=Demonstrate adherence to instructed precautions during ADL tasks. 2=Patient will verbalize/demonstrate understanding of assistive devices/ modifications for ADL. 3=Patient will improve strength/tolerance for activity to enable patient to perform ADL's. OT Offset [place] Goals Care Home Goals Time Frame: Dec 05, 2016 Grooming(FIM): 6 Bathing(FIM): 5 Upper Body Dressing(FIM): 5 Lower Body Dressing(FIM): 5 Toileting(FIM): 6 Toilet/Commode Transfer(FIM): 6 Additional Goals: 1-Demonstrate ADL Tasks, 2-Verbalize Understanding, 3- ImproveStrength/[place] 1=Demonstrate adherence to instructed precautions during ADL tasks. 2=Patient will verbalize/demonstrate understanding of assistive devices/ modifications for ADL. 3=Patient will improve strength/tolerance for activity to enable patient to perform ADL's. OT Education/Plan Problem List/Assessment Assessment: Dependent Transfers, Impaired Self-Care Skills Pt s/p left TKA with decreased mobility and ADL functioning. Pt to benefit from skilled OT intervention for ADL training, transfers, strengthening, adaptive equipment training as needed, and home safety education to maximize level of function and allow safe return home with spouse. Discharge Recommendations Plan/Recommendations: Continue POC Treatment Plan/Plan of Care Treatment,Training & Education: Yes Patient would benefit from OT for education, treatment and training to promote independence in ADL's, mobility, safety and/or upper extremity function for ADL' s. Plan of Care: ADL Retraining, Functional Mobility, UE Funct Exercise/Act Treatment Duration: Dec 05, 2016 # of days/week 5 Visits Per Week: 5 Agreement: Yes Rehab Potential: Good Time/GCodes Start Time: 13:15 Stop Time: 13:30 Total Time Billed (hr/min): 15 Billed Treatment Time 1 visit, [place](15minutes) LISE RUSH OT Nov 28, 2016 14:28
[2016-11-28 16:00] VITALS: BP 155/72
[2016-11-28] MEDS: KETOROLAC 15 MG/ML VIAL IVP PRN (18:21)
[2016-11-28] MEDS ORDERED: BACLOFEN 10 MG (LIORESAL) TAB PO SCH (18:45)
[2016-11-28] MEDS: TERAZOSIN 2 MG (HYTRIN) CAP PO SCH (20:36)
[2016-11-28] MEDS: SENNA W/DOCUSATE (SENOKOT S) TABLET PO SCH (20:36)
[2016-11-28] MEDS: PANTOPRAZOLE 20 MG TABLET (PROTONIX) PO SCH (20:36)
[2016-11-28] MEDS: AMITRIPTYLINE 25 MG (ELAVIL) TAB PO SCH (20:36)
[2016-11-29] VITALS: BP 155/81
[2016-11-29] MEDS: DIAZEPAM 5 MG (VALIUM) TABLET PO PRN (03:04)
[2016-11-29] MEDS: KETOROLAC 15 MG/ML VIAL IVP PRN ×2 (06:36→11:48)
[2016-11-29] MEDS: HYDROcodone/APAP 10 MG/325 MG (LORTAB) TAB PO PRN ×2 (06:43→11:50)
[2016-11-29] MEDS: D5 1/2 NS 1000 ML IV SOLUTION 1,000 ML IV SCH (06:43)
--- NOTE | 2016-11-29 07:19 | Progress Note (SOAP) ---
Subjective Subjective/Events-last exam Pain is better controlled this morning, still having some muscle spasms, nausea controlled at this time. ambulated about 20 ft yesterday with assistance Objective Exam Vital Signs Date Time Temp Pulse Resp B/P Pulse Ox O2 Delivery O2 Flow Rate FiO2 11/29/16 00:00 97.8 97 20 155/81 97 Room Air 11/28/16 21:00 Room Air 11/28/16 16:00 98.5 83 16 155/72 98 Room Air 11/28/16 12:00 98.9 81 18 128/75 99 Room Air 11/28/16 09:00 96 Room Air 11/28/16 08:00 98.7 87 18 118/72 94 Room Air I & O 11/29/16 07:00 Intake Total 2420 ml Output Total 2600 ml Balance -180 ml Capillary Refill : Less Than 3 Seconds General Appearance: No Apparent Distress Respiratory: No Accessory Muscle Use Cardiovascular: Regular Rate, Rhythm Normal Peripheral Pulses Gastrointestinal: non tender soft Extremity: Normal Capillary Refill Normal Inspection Normal Range of Motion No Calf Tenderness Neurologic/Psychiatric: Alert Oriented x3 No Motor/Sensory Deficits Normal Mood/Affect Skin: Normal Color Warm/Dry (dressing left knee CDI) Assessment/Plan Assessment/Plan Assess & Plan/Chief Complaint A: s/p left TKA POD 2 P: Continue current treatment, possible DC today if she improves, Will speak with nursing staff this afternoon about discharge Diagnosis/Problems: Clinical Quality Measures DVT/VTE Risk/Contraindication: Risk Factor Score Per Nursin RFS Level Per Nursing on Admit: 4+=Very High NIK COOK APRN Nov 29, 2016 7:19 am
[2016-11-29] MEDS ORDERED: ASPI325T32 PO (07:21)
[2016-11-29] MEDS ORDERED: HYDR-3820 PO (07:21)
--- NOTE | 2016-11-29 07:25 | Discharge Inst-Home Health ---
Discharge Inst-to Home Health Patient Instructions Patient Instructions/FollowUp: f/u 2 1/2 weeks WBAT with walker CPM 6 hrs per day bilat STEPHON hose Polar care unit for home use may remove hose and dressing for regular shower then reapply Patient Problems: Primay OA left knee s/p left TKA Multiple sclerosis Goal: independence with ADL VIA [place], [place] DISCHARGE ORDERS Allergies: Coded Allergies: No Known Drug Allergies (Unverified , 11/15/16) Height (Feet): 5 Height (Inches): 11.00 Weight (Pounds): 263 Weight (Ounces): 5.0 Home Health Need/Face to Face Reason Pt Homebound unable to ambulate with out assistive device unable to ambulate over 50 ft I Have Seen Pt Khvt-un-Fhux: Yes Date of Face to Face: Nov 29, 2016 Discharged To: Home Diagnosis/Conditions HH Order: Primay OA left knee s/p left TKA Multiple sclerosis yes Consult/Follow Up/New Order *I certify that based on my findings, the following services are medically necessary Home Health Services: Services: Nursing Services, Physical Therapy-Evaluate & Treat My clinical findings support the need for the above services; see Diagnosis. [facility] Orders physical therapy 5x/week x 2 weeks to assist with ambulation and treat ROM nursing to remove jerry and apply steri strips on POD #10 Dicharge Diet: No Restrictions Discharge Medications: New, Converted, or Re-newed RX: RX on Chart I certify that this patient is under my care and that I, a nurse practitioner or a physician; a information assistant working with me, had a face to face encounter that - meets the physician face to face encounter requirements with this patient as dated. NIK COOK APRN Nov 29, 2016 7:24 am
[2016-11-29 07:33] LABS: MEAN PLATELET VOLUME 9.9 FL (7.4-10.4); RED BLOOD COUNT 3.8 10^6/uL (4.35-5.85); RED CELL DISTRIBUTION WIDTH 13.2 % (10.0-14.5); WHITE BLOOD COUNT 6.4 10^3/uL (4.3-11.0)
[2016-11-29 07:47] LABS: INR 1.1 (0.8-1.4); PROTHROMBIN TIME PATIENT 14.3 SEC (12.2-14.7)
[2016-11-29 07:51] LABS: ANION GAP 9 MMOL/L (5-14); BLOOD UREA NITROGEN 6 MG/DL (7-18); BUN/CREATININE RATIO 9; CALCIUM 8.4 MG/DL (8.5-10.1); CARBON DIOXIDE 24 MMOL/L (21-32); CHLORIDE 108 MMOL/L (98-107); CREATININE SERUM 0.65 MG/DL (0.60-1.30); GFR ESTIMATED > 60; GLUCOSE 135 MG/DL (70-105); POTASSIUM 3.3 MMOL/L (3.6-5.0); SODIUM 141 MMOL/L (135-145)
[2016-11-29 08:00] VITALS: BP 130/65
[2016-11-29] MEDS: ASPIRIN E.C. 325 MG (ECOTRIN) TABLET PO SCH (08:32)
[2016-11-29] MEDS: HYDROCHLOROTHIAZIDE 25 MG (HCTZ) TAB PO SCH (08:32)
[2016-11-29] MEDS: BACLOFEN 10 MG (LIORESAL) TAB PO SCH (08:32)
[2016-11-29] MEDS: ESTRADIOL 0.5 MG TAB PO SCH (08:33)
[2016-11-29] MEDS: meTOprolol TARTRATE 25 MG (LOPRESSOR) TABLET PO SCH (08:33)
[2016-11-29] MEDS: SENNA W/DOCUSATE (SENOKOT S) TABLET PO SCH (08:34)
[2016-11-29] MEDS: MEDROXYPROGESTERONE 5 MG TAB PO SCH (08:34)
[2016-11-29] MEDS: ENOXAPARIN 40 MG/0.4 ML (LOVENOX) SYR SC SCH (08:40)
[2016-11-29] MEDS: ENALAPRIL 10 MG (VASOTEC) TAB PO SCH (08:54)
--- NOTE | 2016-11-29 09:14 | Physical Therapy Daily Note ---
PT Daily Note-Current Subjective Patient is very agreeable to participate with PT. Pain Numeric Pain Scale: 5-Moderate Pain Location: Left Location Body Site: Knee Pain Description: Acute Mental Status Patient Orientation: Normal For Age Transfers Functional [place] Measure 0=Not Assessed/NA 4=Minimal Assistance 1=Total Assistance 5=Supervision or Setup 2=Maximal Assistance 6=Modified [place] 3=Moderate Assistance 7=Complete IndependenceIRFPAI Quality Coding Scale 6 Independent with activity with or without an assistive device 5 Patient requires set up or clean up by helper. Patient completes activity by themselves 4 Supervision or touching assist (CGA). [place] provide cues , steadying assist 3 The helper provides less than half the effort to complete the activity 2 The helper provides more than half the effort to complete the activity 1 Dependent. The helper does all the effort to complete an activity 7 Patient refused to complete or attempt activity 9 The patient did not perform the activity before the current illness or injury 88 Not attempted due to Medical conditions or safety concerns Transfers (B, C, W/C) (FIM): 4 Scootin Supine to/from Sit: 4 Sit to/from Stand: 4 assist with left LE with bed mobility Gait Training Gait (FIM): 2 Distance (FIM): 8=604-21 ft Distance: 125' Gait Level of Assist: 4 Gait Assistive Device: FWW CGA for safety; safe and functional gait with 4WW Exercises Supine Ex: Quad Set, Heel Slides, Straight leg raise Supine Reps: 15 (AAROM left LE) Seated Therapy Exercises: Long arc quads Seated Reps: 15 Assessment Patient tolerated treatment well and is in bed with CPM and polar pack in place. CPM 0-60 degrees. Patient is motivated to return to home on this date. PT Short Term Goals Short Term Goals Time Frame: Dec 05, 2016 Transfers (B,C,W/C) (FIM): 6 Gait (FIM): 3 Distance (FIM): 3=150 ft Gait Level of Assist: 3 Gait Assistive Device: Walker 4 Wheeled # of Steps: 4 Stairs Level of Assist: 5 PT Plan Treatment/Plan Treatment Plan: Continue Plan of Care Treatment Plan: Bed Mobility, Education, Functional Activity [place], Functional Strength, Gait, Safety, Therapeutic Exercise, Transfers Treatment Duration: Dec 05, 2016 Visits Per Week: 12 Time/GCodes Time In: 825 Time Out: 910 Total Billed Treatment Time: 45 Total Billed Treatment 1 visit EX x 2 25 min GT 20 min BERE PINEDA PT Nov 29, 2016 09:14
--- NOTE | 2016-11-29 10:46 | Occupational Ther Daily Note ---
OT Current Status-Daily Note Subjective Pt seen in room, agreeable to OT. No pain mentioned Appearance Alert, cooperative Mental Status/Objective Functional [place] Measure 0=Not Assessed/NA 4=Minimal Assistance 1=Total Assistance 5=Supervision or Setup 2=Maximal Assistance 6=Modified [place] 3=Moderate Assistance 7=Complete [place] ADL-Treatment Pt requested bath but did not want to shower. Setup sponge bath. Pt planned to dress later since she was going home and was able to verbalize modified technique for lower body dressing. DC pt with goals met to her satisfaction. Grooming (FIM): 6 (Mod I at sink, 4WW) Bathing (FIM): 5 Toileting (FIM): 6 (Mod I tall toilet, grab bars, 4ww) Toilet/Commode Transfer (FIM): 6 (Mod I tall toilet, grab bars, 4ww) Education OT Patient Education: Modified ADL techniques, Progress toward Goal/Update tx plan Teaching Recipient: Patient Teaching Methods: Discussion Response to Teaching: Verbalize Understanding OT Short Term Goals Short Term Goals Transfers (B,C,W/C) (FIM): 6 1=Demonstrate adherence to instructed precautions during ADL tasks. 2=Patient will verbalize/demonstrate understanding of assistive devices/ modifications for ADL. 3=Patient will improve strength/tolerance for activity to enable patient to perform ADL's. OT Supervisor [place] Goals Supervisor [place] Goals Time Frame: Dec 05, 2016 Grooming(FIM): 6 Bathing(FIM): 5 Upper Body Dressing(FIM): 5 Lower Body Dressing(FIM): 5 Toileting(FIM): 6 Toilet/Commode Transfer(FIM): 6 Additional Goals: 1-Demonstrate ADL Tasks, 2-Verbalize Understanding, 3- ImproveStrength/[place] 1=Demonstrate adherence to instructed precautions during ADL tasks. 2=Patient will verbalize/demonstrate understanding of assistive devices/ modifications for ADL. 3=Patient will improve strength/tolerance for activity to enable patient to perform ADL's. OT Education/Plan Problem List/Assessment Pt s/p left TKA with decreased mobility and ADL functioning. Pt to benefit from skilled OT intervention for ADL training, transfers, strengthening, adaptive equipment training as needed, and home safety education to maximize level of function and allow safe return home with spouse. Discharge Recommendations Plan/Recommendations: Discharge/Goals Met (to pt satisfaction) Treatment Plan/Plan of Care Patient would benefit from OT for education, treatment and training to promote independence in ADL's, mobility, safety and/or upper extremity function for ADL' s. Plan of Care: ADL Retraining, Functional Mobility, UE Funct Exercise/Act Treatment Duration: Dec 05, 2016 Visits Per Week: 5 Agreement: Yes Rehab Potential: Good Time/GCodes Start Time: 10:10 Stop Time: 10:20 Total Time Billed (hr/min): 10 Billed Treatment Time visit, 10 minutes ADL WILDA ALVAREZ OT Nov 29, 2016 10:46
--- NOTE | 2016-11-29 13:01 | Discharge Summary ---
Diagnosis/Chief Complaint Date of Admission Nov 27, 2016 at 8:49 am Date of Discharge 11/29/2016 Discharge Date: Nov 29, 2016 Admission Diagnosis Admission Diagnosis Primary OA left knee Discharge Diagnosis Primary OA left knee s/p left TKA Reason Hospital Visit failed conservative treatment for primary OA of left knee, on the date of admission she underwent at left TKA with no complications. Postoperatively she was maintained on DVT and antibiotic prophylaxis. She progressed well throughout the hospital stay with no complications. Her labs and vitals remained stable. Discharge Summary Procedures: Left TKA Consultations none Discharge Physical Examination Allergies: Coded Allergies: No Known Drug Allergies (Unverified , 11/15/16) Vitals & I&Os Vital Signs Date Time Temp Pulse Resp B/P Pulse Ox O2 Delivery O2 Flow Rate FiO2 11/29/16 08:00 97.0 99 20 130/65 11/29/16 00:00 97 Room Air General Appearance: Alert, Oriented X3 HEENT: PERRLA Respiratory: Clear to Auscultation Cardiovascular: Regular Rate Abdominal: Soft, No Tenderness Extremities: No Clubbing, No Cyanosis, Normal Pulses Skin: No Rashes Neuro: Normal Gait, Strength at 5/5 X4 Ext Psych/Mental Status: Mental Status NL Hospital Course She did well with no complications. Maintained on DVt and antibiotic pro. progressed will with therapy. VSS afebrile. exam within normal limits Pending Labs Laboratory Tests 11/29/16 07:20: Anion Gap 9, BUN/Creatinine Ratio 9, Blood Urea Nitrogen 6, Calcium Level 8.4, Carbon Dioxide Level 24, Chloride Level 108, Creatinine 0.65, Estimat Glomerular Filtration Rate > 60, Glucose Level 135, Hematocrit 33, Hemoglobin 10.8, INR Comment 1.1, Mean Corpuscular Hemoglobin 28, Mean Corpuscular Hemoglobin Concent 33, Mean Corpuscular Volume 86, Mean Platelet Volume 9.9, Platelet Count 236, Potassium Level 3.3, Prothrombin Time 14.3, Red Blood Count 3.80, Red Cell Distribution Width 13.2, Sodium Level 141, White Blood Count 6.4 Discussion & Recommendations Discharged to home with home healthcare physical therapy and nursing continue bilat STEPHON continue CPM and polar care WBAT with walker for assist f/u 2 1/2 weeks Discharge Condition at discharge good Instructions to patient/family Please see electonic discharge instructions given to patient. Discharge Medications Reviewed and agree with Discharge Medication list on patient's Discharge Instruction sheet Clinical Quality Measures DVT/VTE Risk/Contraindication: VTE Present on Admission: Yes Risk Factor Score Per Nursin RFS Level Per Nursing on Admit: 4+=Very High Other: DVT pro with ASA 325mg NIK COOK APRN Nov 29, 2016 1:01 pm
[2016-11-29 14:00] VITALS: BP 132/62
== END 2016-11-29 13:50 | disposition home health service (06) | DRG 470 ==
LOC: SURGICAL 08:49 → SURG 08:50 → 4TH 14:20
PROVIDERS: ADMIT Orthopaedic Surgery; ATTEND Orthopaedic Surgery
PROC: 3E0T3CZ (ICD-10-PCS; 2016-11-27)
PROC: 0SRD0J9 Replacement of Left Knee Joint with Synthetic Substitute, Cemented, Open Approach (ICD-10-PCS; principal; 2016-11-27 10:36)
DX: M17.12 Unilateral primary osteoarthritis, left knee (principal); G35 Multiple sclerosis; I10 Essential (primary) hypertension
CPT/HCPCS: 36415; 73560; 80048; 85027; 85610; 94664

== ENCOUNTER → 2017-11-01 | Outpatient (CLI) | payer MEDICARE ==
[~2017-11-01] MED LIST changes: +ASPI325T32 PO; +HYDR-3820 PO; +HYDR25TA4 PO; +MEDR5TAB4 PO; +METO-333 PO; +OMEP20CA12 PO; +TERA2CAP4 PO
--- NOTE | 2017-11-01 18:58 | Diagnostic Imaging Report ---
INDICATION: Routine screening. Comparison is made with prior exams from 07/19/2016 and 11/18/2014. The current study was also evaluated with a Computer Aided Detection (CAD) system. FINDINGS: Scattered parenchymal densities are identified bilaterally. The parenchymal pattern is stable. No mass or malignant-appearing microcalcifications are seen. There are benign calcifications bilaterally. The axillae are unremarkable. IMPRESSION: No mammographic features suspicious for malignancy are identified. ACR BI-RADS Category 2: Benign findings. Result letter will be mailed to the patient. Note: At least 10% of breast cancer is not imaged by mammography. Dictated by: Dictated on workstation # [id number]
== END ==
LOC: RAD 14:00
PROVIDERS: ATTEND Obstetrics & Gynecology
DX: Z12.31 Encounter for screening mammogram for malignant neoplasm of breast (principal)
CPT/HCPCS: 77067

== ENCOUNTER 2018-10-01 21:42 | Emergency (ER) | payer MEDICARE ==
[~2018-10-01] VITALS: Ht 180.3 cm; Wt 113.4 kg
[2018-10-01] MEDS ORDERED: LACTATED RINGERS 1,000 ML IV ONE (21:43)
[2018-10-01] MEDS ORDERED: SCOPOLAMINE 1.5 MG (TRANSDERM-SCOP) PATCH TD ONE (21:45)
[2018-10-01] MEDS ORDERED: ONDANSETRON 4 MG/2 ML (SDV) Z0FRAN IVP ONE (21:45)
[2018-10-01 21:57] LABS: BASOPHILS % (AUTO) 0 % (0-10); EOSINOPHILS % (AUTO) 0 % (0-10); HEMATOCRIT 41 % (35-52); HEMOGLOBIN 13.9 G/DL (11.5-16.0); LYMPHOCYTES # (AUTO) 0.7 X 10^3 (1.0-4.0); LYMPHOCYTES % (AUTO) 14 % (12-44); MEAN CORPUSCULAR HEMOGLOBIN 29 PG (25-34); MEAN CORPUSCULAR HGB CONC 34 G/DL (32-36); MEAN CORPUSCULAR VOLUME 86 FL (80-99); MEAN PLATELET VOLUME 10.2 FL (7.4-10.4); MONOCYTES # (AUTO) 0.3 X 10^3 (0.0-1.0); MONOCYTES % (AUTO) 6 % (0-12); NEUTROPHILS # (AUTO) 4.2 X 10^3 (1.8-7.8); NEUTROPHILS % (AUTO) 80 % (42-75); PLATELET COUNT 268 10^3/uL (130-400); RED BLOOD COUNT 4.77 10^6/uL (4.35-5.85); RED CELL DISTRIBUTION WIDTH 13.7 % (10.0-14.5); WHITE BLOOD COUNT 5.2 10^3/uL (4.3-11.0)
[2018-10-01] MEDS ORDERED: methylPREDNISolone 125 MG (Solu-MEDROL) VIAL IVP ONE (22:00)
[2018-10-01 22:07] LABS: PROTHROMBIN TIME PATIENT 13.2 SEC (12.2-14.7)
[2018-10-01 22:16] LABS: ALANINE AMINOTRANSFERASE 18 U/L (0-55); ALBUMIN 3.9 GM/DL (3.2-4.5); ALKALINE PHOSPHATASE 86 U/L (40-136); BILIRUBIN,TOTAL 0.5 MG/DL (0.1-1.0); BUN/CREATININE RATIO 12; CALCIUM 9.7 MG/DL (8.5-10.1); CARBON DIOXIDE 24 MMOL/L (21-32); CHLORIDE 104 MMOL/L (98-107); CREATININE SERUM 0.89 MG/DL (0.60-1.30); GFR ESTIMATED > 60; GLUCOSE 151 MG/DL (70-105); MAGNESIUM 2.3 MG/DL (1.8-2.4); POTASSIUM 3.7 MMOL/L (3.6-5.0); SODIUM 139 MMOL/L (135-145); TOTAL PROTEIN 6.8 GM/DL (6.4-8.2)
[2018-10-01 22:35] LABS: TSH (THYROID ANALYZER) 0.48 UIU/ML (0.35-4.94)
[2018-10-01 23:22] LABS: BILIRUBIN,URINE NEGATIVE (NEGATIVE); CLARITY,URINE CLEAR; COLOR,URINE YELLOW; GLUCOSE, URINE (UA) NEGATIVE (NEGATIVE); KETONES,URINE NEGATIVE (NEGATIVE); LEUKOCYTE ESTERASE ,URINE NEGATIVE (NEGATIVE); NITRITE,URINE NEGATIVE (NEGATIVE); PH,URINE 7 (5-9); PROTEIN,URINE NEGATIVE (NEGATIVE); UROBILINOGEN,URINE 1 MG/DL (NORMAL)
[2018-10-02] MEDS ORDERED: SCOP1PAT11 TD ×2 (00:05→00:09)
[2018-10-02] MEDS ORDERED: PRED5TAB PO ×2 (00:05→00:09)
[2018-10-02] MEDS ORDERED: ONDA8TAB6 PO ×2 (00:05→00:09)
--- NOTE | 2018-10-02 00:05 | ED General ---
General Chief Complaint: Dizziness/Syncope Stated Complaint: NAUSEA,VERTIGO Allergies and Home Medications Allergies Coded Allergies: No Known Drug Allergies (Unverified , 11/15/16) Home Medications Amitriptyline HCl 25 Mg Tablet, 25 MG PO HS, (Reported) Aspirin 325 Mg Tablet.dr, 325 MG PO DAILY Prescribed by: NIK COOK on 11/29/16720 Atorvastatin Calcium 40 Mg Tablet, 40 MG PO HS, (Reported) Baclofen 10 Mg Tablet, 10 MG PO QID, (Reported) Calcium Carb & Citrate/Vit D3 1 Each Tablet.er, 1 TAB PO BID, (Reported) Cholecalciferol (Vitamin D3) 400 Unit Capsule, 400 UNIT PO DAILY, (Reported) Diazepam 5 Mg Tablet, 5 MG PO TID PRN for VERTIGO, (Reported) Doxycycline Hyclate 100 Mg Capsule, 100 MG PO Q48H, (Reported) Enalapril Maleate 10 Mg Tablet, 10 MG PO DAILY, (Reported) Estradiol 0.5 Mg Tablet, 0.25 MG PO DAILY, (Reported) TAKES 1/2 OF A (0.5 MG) TABLET Hydrochlorothiazide 25 Mg Tablet, 25 MG PO DAILY, (Reported) Hydrocodone/Acetaminophen 1 Each Tablet, 1 EA PO Q4H PRN for MODERATE PAIN Prescribed by: NIK COOK on 11/29/16720 Meclizine Hcl 25 Mg Tablet, 25 MG PO Q6H PRN for DIZZINESS, (Reported) Medroxyprogesterone Acetate 5 Mg Tablet, 1.25 MG PO DAILY, (Reported) TAKES 1/4 OF A (5 MG) TABLET Metoprolol Tartrate 25 Mg Tablet, 25 MG PO BID, (Reported) Multivitamins 1 Each Capsule, 1 TAB PO DAILY, (Reported) Omeprazole 20 Mg Capsule.dr, 20 MG PO HS, (Reported) Polyethylene Glycol 17 Gm Pack, 17 GM PO DAILY PRN for CONSTIPATION, (Reported) Terazosin HCl 2 Mg Capsule, 2 MG PO HS, (Reported) Tramadol HCl 50 Mg Tablet, 50 MG PO Q6H PRN for PAIN, (Reported) Past Gcgmryl-Arnnnn-Axveot Hx Patient Social History Recent Foreign Travel: No Contact w/Someone Who Travel: No Recent Hopitalizations: No Immunizations Up To Date Tetanus Booster (TDap): Unknown Date of Pneumonia Vaccine: Jul 14, 2012 Date of Influenza Vaccine: Jul 09, 2016 Seasonal Allergies Seasonal Allergies: Yes Past Medical History Surgeries: Yes (TOTAL RIGHT KNEE) Respiratory: No Cardiac: Yes Neurological: Yes Reproductive Disorders: No Sexually Transmitted Disease: No HIV/AIDS: No Genitourinary: Yes Neurogenic Bladder Gastrointestinal: Yes Gastroesophageal Reflux, Chronic Constipation Musculoskeletal: Yes (MS, OSTOARTHRITIS LEFT KNEE, SCIATIC PAIN RIGHT LEG) Arthritis, Chronic Back Pain Endocrine: No HEENT: Yes (GLASSES) Loss of Vision: Bilateral Hearing Impairment: Denies Cancer: No Psychosocial: No Anxiety, Depression Integumentary: No Blood Disorders: No Adverse Reaction/Blood Tranf: No (N/A) Family Medical History Cardiovascular disease 19 FATHER Hypercholesterolemia 19 MOTHER Hypertension 19 MOTHER LEUKEMIA G8 SISTER Myocardial infarction 19 FATHER G8 BROTHER No Pertinent Family Hx Physical Exam Vital Signs Capillary Refill : Height, Weight, BMI Height: 5'11.00" Weight: 263lbs. 5.0oz. 119.072149jy; 36.7 BMI Method:Stated Progress/Results/Core Measures Suspected Sepsis SIRS Temperature: Pulse: Respiratory Rate: Laboratory Tests 10/01/18 21:45: White Blood Count 5.2 Blood Pressure / Mean: Laboratory Tests 10/01/18 21:45: Creatinine 0.89, INR Comment 1.0, Platelet Count 268, Total Bilirubin 0.5 Results/Orders Lab Results Laboratory Tests Test 10/01/18 21:45 10/01/18 23:15 Range/Units White Blood Count 5.2 4.3-11.0 10^3/uL Red Blood Count 4.77 4.35-5.85 10^6/uL Hemoglobin 13.9 11.5-16.0 G/DL Hematocrit 41 35-52 % Mean Corpuscular Volume 86 80-99 FL Mean Corpuscular Hemoglobin 29 25-34 PG Mean Corpuscular Hemoglobin Concent 34 32-36 G/DL Red Cell Distribution Width 13.7 10.0-14.5 % Platelet Count 268 130-400 10^3/uL Mean Platelet Volume 10.2 7.4-10.4 FL Neutrophils (%) (Auto) 80 H 42-75 % Lymphocytes (%) (Auto) 14 12-44 % Monocytes (%) (Auto) 6 0-12 % Eosinophils (%) (Auto) 0 0-10 % Basophils (%) (Auto) 0 0-10 % Neutrophils # (Auto) 4.2 1.8-7.8 X 10^3 Lymphocytes # (Auto) 0.7 L 1.0-4.0 X 10^3 Monocytes # (Auto) 0.3 0.0-1.0 X 10^3 Eosinophils # (Auto) 0.0 0.0-0.3 10^3/uL Basophils # (Auto) 0.0 0.0-0.1 10^3/uL Prothrombin Time 13.2 12.2-14.7 SEC INR Comment 1.0 0.8-1.4 Activated Partial Thromboplast Time 25 24-35 SEC Sodium Level 139 135-145 MMOL/L Potassium Level 3.7 3.6-5.0 MMOL/L Chloride Level 104 98-107 MMOL/L Carbon Dioxide Level 24 21-32 MMOL/L Anion Gap 11 5-14 MMOL/L Blood Urea Nitrogen 11 7-18 MG/DL Creatinine 0.89 0.60-1.30 MG/DL Estimat Glomerular Filtration Rate > 60 BUN/Creatinine Ratio 12 Glucose Level 151 H 70-105 MG/DL Calcium Level 9.7 8.5-10.1 MG/DL Corrected Calcium 9.8 8.5-10.1 MG/DL Magnesium Level 2.3 1.8-2.4 MG/DL Total Bilirubin 0.5 0.1-1.0 MG/DL Aspartate Amino Transf (AST/SGOT) 25 5-34 U/L Alanine Aminotransferase (ALT/SGPT) 18 0-55 U/L Alkaline Phosphatase 86 40-136 U/L Troponin I < 0.30 <0.30 NG/ML Total Protein 6.8 6.4-8.2 GM/DL Albumin 3.9 3.2-4.5 GM/DL TSH O'Brien Testing 0.48 0.35-4.94 UIU/ML Urine Color YELLOW Urine Clarity CLEAR Urine pH 7 5-9 Urine Specific [place] 1.010 L 1.016-1.022 Urine Protein NEGATIVE NEGATIVE Urine Glucose (UA) NEGATIVE NEGATIVE Urine Ketones NEGATIVE NEGATIVE Urine Nitrite NEGATIVE NEGATIVE Urine Bilirubin NEGATIVE NEGATIVE Urine Urobilinogen 1 NORMAL MG/DL Urine Leukocyte Esterase NEGATIVE NEGATIVE Urine RBC (Auto) NEGATIVE NEGATIVE Urine RBC NONE /HPF Urine WBC NONE /HPF Urine Squamous Epithelial Cells 2-5 /HPF Urine Crystals NONE /LPF Urine Bacteria NONE /HPF Urine Casts NONE /LPF Urine Mucus NEGATIVE /LPF Urine Culture Indicated NO My Orders Orders - TOMMY GARCIA DO Saline Lock/Iv-Start (10/01/18 21:43) Ekg Tracing (10/01/18 21:43) Monitor-Rhythm Ecg Trace Only (10/01/18 21:43) Cbc With Automated Diff (10/01/18 21:43) Comprehensive Metabolic Panel (10/01/18 21:43) Magnesium (10/01/18 21:43) Protime With Inr (10/01/18 21:43) Partial Thromboplastin Time (10/01/18 21:43) Thyroid Analyzer (10/01/18 21:43) Troponin I (10/01/18 21:43) Ua Culture If Indicated (10/01/18 21:43) Saline Lock/Iv-Start (10/01/18 21:43) Lactated Ringers (Lr 1000 Ml Iv Solution (10/01/18 21:43) Ondansetron Injection (Zofran Injectio (10/01/18 21:45) Scopolamine Patch (Transderm-Scop Patch) (10/01/18 21:45) Methylprednisolone Sod Succ (Solu-Medrol (10/01/18 22:00) Medications Given in ED Current Medications Medications Dose Ordered Sig/Keon Route Start Time Stop Time Status Last Admin Dose Admin Lactated Ringer's 1,000 ml @ 0 mls/hr Q0M ONCE IV 10/01/18 21:43 10/01/18 21:47 DC 10/01/18 21:58 0 MLS/HR Methylprednisolone Sodium Succinate 250 mg ONCE ONCE IVP 10/01/18 22:00 10/01/18 22:01 DC 10/01/18 21:58 250 MG Ondansetron HCl 4 mg ONCE ONCE IVP 10/01/18 21:45 10/01/18 21:47 DC 10/01/18 21:58 4 MG Scopolamine 1.5 mg ONCE ONCE TD 10/01/18 21:45 10/01/18 21:47 DC 10/01/18 21:56 1.5 MG Vital Signs/I&O Capillary Refill : Departure Impression Primary Impression: Vertigo Additional Impression: Multiple sclerosis Disposition: HOME, SELF-CARE Condition: Improved Departure-Patient Inst. Referrals: MINERVA HAYES MD (PCP/Family) Primary Care Physician Patient Instructions: Vertigo (a Type of Dizziness) (DC) Add. Discharge Instructions: HOLD YOUR CURRENT PREDNISONE DOSE PACK TAKE YOUR MECLIZINE 50 MG EVERY 4 HOURS NEEDED FOR DIZZINESS SLOW POSITION CHANGES FOLLOW UP WITH YOUR DR TOMORROW IF SYMPTOMS RETURN All discharge instructions reviewed with patient and/or family. Voiced understanding. Scripts Prednisone (Prednisone) 5 Mg Tablet 5 MG PO UD, #78 TAB 12 PILLS DAY 1, THEN DECREASE BY 1 PILL A DAY UNTIL GONE Prov: TOMMY GARCIA DO 10/02/18 Scopolamine (Transderm-Scop) 1 Each Patch.td72 1 EACH TD Q72 HOURS for Dizziness, #3 PATCH Prov: TOMMY GARCIA DO 10/02/18 Ondansetron HCl (Zofran) 8 Mg Tablet 8 MG PO Q6H for Nausea/Vomiting, #15 TAB Prov: TOMMY GARCIA DO 10/02/18 TOMMY GARCIA DO Oct 02, 2018 00:05
[2018-10-02 00:23] VITALS: BP 127/97
== END 2018-10-02 00:24 | disposition home or self-care (01) ==
LOC: EDUNIT# 21:42 → ER 21:43
DX: R42 Dizziness and giddiness (principal); G35 Multiple sclerosis; K21.9 Gastro-esophageal reflux disease without esophagitis; M17.12 Unilateral primary osteoarthritis, left knee; F41.9 Anxiety disorder, unspecified; F32.9 Major depressive disorder, single episode, unspecified; Z82.49 Family history of ischemic heart disease and other diseases of the circulatory system; Z80.6 Family history of leukemia; Z79.82 Long term (current) use of aspirin; Z96.651 Presence of right artificial knee joint; Z87.448 Personal history of other diseases of urinary system; Z87.19 Personal history of other diseases of the digestive system
CPT/HCPCS: 36415; 80053; 81000; 83735; 84443; 84484; 85025; 85610; 85730; 93005; 93041; 96361; 96374; 96375

== ENCOUNTER → 2021-05-10 | Outpatient (CLI) | payer MEDICARE, OTHER ==
[~2021-05-10] MED LIST changes: +ACHYD1T PO; +ENAL10TA16 PO; -HYDR-3820 PO; -OMEP20CA12 PO; +OMEP20CA18 PO; +ONDA8TAB6 PO; +PRED5TAB PO; +SCOP1PAT11 TD; -TRAM50TA2 PO; +TRM50T PO
--- NOTE | 2021-05-10 16:28 | Diagnostic Imaging Report ---
INDICATION: Routine screening. COMPARISON: 05/11/2019 and 11/01/2017. TECHNIQUE: 2D and 3D bilateral screening mammography was performed with CAD. FINDINGS: Both breasts are heterogeneously dense, limiting the sensitivity of mammography. The parenchymal pattern is stable. No mass or malignant-appearing microcalcifications are seen. The axillae are unremarkable. IMPRESSION: No mammographic features suspicious for malignancy are identified. ACR BI-RADS Category 1: Negative. Result letter will be mailed to the patient. Note: At least 10% of breast cancer is not imaged by mammography. Dictated by: Dictated on workstation # [id number]
== END ==
LOC: RAD 14:45
PROVIDERS: ATTEND Physician Assistant
DX: Z12.31 Encounter for screening mammogram for malignant neoplasm of breast (principal)
CPT/HCPCS: 77063; 77067

== ENCOUNTER 2022-05-28 19:18 | Emergency (ER) | payer MEDICARE, OTHER ==
[~2022-05-28] VITALS: Ht 180.3 cm; Wt 90.7 kg
[~2022-05-28 19:18] MED LIST changes: +DOXY100C5 PO; +SCOP1PAT10 TD; -SCOP1PAT11 TD
[2022-05-28 21:46] LABS: BILIRUBIN,URINE NEGATIVE (NEGATIVE); CLARITY,URINE CLEAR; COLOR,URINE YELLOW; GLUCOSE, URINE (UA) NEGATIVE (NEGATIVE); KETONES,URINE 1+ (NEGATIVE); LEUKOCYTE ESTERASE ,URINE NEGATIVE (NEGATIVE); NITRITE,URINE NEGATIVE (NEGATIVE); PROTEIN,URINE NEGATIVE (NEGATIVE)
[2022-05-28 21:54] LABS: BASOPHILS % (AUTO) 0 % (0-10); EOSINOPHILS % (AUTO) 0 % (0-10); HEMATOCRIT 43 % (35-52); LYMPHOCYTES # (AUTO) 0.7 10^3/uL (1.0-4.0); LYMPHOCYTES % (AUTO) 9 % (12-44); MEAN CORPUSCULAR HEMOGLOBIN 29 pg (25-34); MEAN CORPUSCULAR HGB CONC 33 g/dL (32-36); MEAN CORPUSCULAR VOLUME 87 fL (80-99); MEAN PLATELET VOLUME 10.2 fL (9.0-12.2); MONOCYTES # (AUTO) 0.5 10^3/uL (0.0-1.0); MONOCYTES % (AUTO) 6 % (0-12); NEUTROPHILS # (AUTO) 6.1 10^3/uL (1.8-7.8); NEUTROPHILS % (AUTO) 84 % (42-75); PLATELET COUNT 248 10^3/uL (130-400); WHITE BLOOD COUNT 7.3 10^3/uL (4.3-11.0)
[2022-05-28 21:55] LABS: BACTERIA,URINE NEGATIVE /HPF; SQUAMOUS EPITHELIAL CELL,UR 0-2 /HPF
[2022-05-28 22:00] LABS: POTASSIUM 3.2 MMOL/L (3.6-5.0)
[2022-05-28 22:01] LABS: CALCIUM 9.9 MG/DL (8.5-10.1)
[2022-05-28 22:05] LABS: CREATININE SERUM 0.78 MG/DL (0.60-1.30)
[2022-05-28] MEDS ORDERED: NS IV 500 ML 500 ML IV ONE (22:15)
[2022-05-28] MEDS ORDERED: ONDANSETRON 4 MG/2 ML (SDV) Z0FRAN IVP ONE (22:15)
[2022-05-28] MEDS ORDERED: KCL 10 MEQ TAB (MICRO K) PO ONE (22:15)
[2022-05-28] MEDS ORDERED: methylPREDNISolone SOD SUCC 1,000 MG in NS (IVPB) 100 ML IV ONE (22:30)
[2022-05-28] MEDS ORDERED: methylPREDNISolone SOD SUCC 500 MG in NS (IVPB) 50 ML IV ONE (23:00)
[2022-05-28] MEDS ORDERED: methylPREDNISolone 125 MG (Solu-MEDROL) VIAL ONE (23:05)
[2022-05-28] MEDS ORDERED: NS (IVPB) 50 ML ONE (23:06)
[2022-05-28] MEDS ORDERED: ONDA4TAB11 SL (23:20)
--- NOTE | 2022-05-28 23:20 | ED General ---
General Chief Complaint: General Problems/Pain Stated Complaint: MS FLARE UP Nursing Triage Note: pt to room by personal wheelchair. pt states she is here for having an ms flare up. pt reports she has vertigo symptoms, dizzy, nausea, and extreme fatigue. pt states this is always what happens when she has a flare. she states in the past she was given iv solumederol and given a steroid to take at home and that typically helps her Source of Information: Patient, Old Records Exam Limitations: No Limitations History of Present Illness Date Seen by Provider: May 28, 2022 Time Seen by Provider: 21:09 Initial Comments This is 66-year-old woman with MS presents to the emergency room concerned that she is having a flare of MS. Dizziness, nausea, fatigue, and left-sided facial pain are her primary symptoms today which she is attributing to a flare of MS. These are similar symptoms that she has had in the past with MS flare except for the stabbing pain in the left face. Symptoms started about a week ago with dizziness. That has since improved. She went to the dentist last month for dental pain. She had a tooth filed to help with that pain. However, she developed what she identifies as a trigeminal type pain in the left face. She is experiencing sharp shooting pain throughout the left face. This has improved a bit in the past couple days. She has had significant fatigue and complains of nausea with dry heaving today. She denies any urinary or respiratory symptoms. Dr. Epps is her primary care provider. Allergies and Home Medications Allergies Coded Allergies: No Known Drug Allergies (Unverified , 11/15/16) Patient Home Medication List Home Medication List Reviewed: Yes Amitriptyline HCl (Amitriptyline HCl) 25 Mg Tablet, 25 MG PO HS, (Reported) Entered as Reported by: PEARL LANGFORD on 11/27/16 1514 Aspirin (Aspirin EC) 325 Mg Tablet.dr 325 MG PO DAILY Prescribed by: NIK COOK on 11/29/16 0721 Atorvastatin Calcium (Atorvastatin Calcium) 40 Mg Tablet, 40 MG PO HS, (Reported) Entered as Reported by: JUSTIN SANDOVAL on 11/15/16 1023 Baclofen (Baclofen) 10 Mg Tablet, 10 MG PO QID, (Reported) Entered as Reported by: PEARL LANGFORD on 11/27/16 1514 Calcium Carb & Citrate/Vit D3 (Calcium + D3 ER Tablet) 1 Each Tablet.er, 1 TAB PO BID, (Reported) Entered as Reported by: JUSTIN SANDOVAL on 11/15/16 1023 Cholecalciferol (Vitamin D3) (Vitamin D3) 400 Unit Capsule, 400 UNIT PO DAILY, (Reported) Entered as Reported by: TONY SANDERS on 04/13/14 1237 Diazepam (Valium 5 Mg Tab) 5 Mg Tablet, 5 MG PO TID PRN for VERTIGO, (Reported) Entered as Reported by: VICTORINA HAYES on 10/16/12 1410 Doxycycline Hyclate (Doxycycline Hyclate) 100 Mg Capsule, 100 MG PO Q48H, (Reported) Entered as Reported by: PEARL LANGFORD on 11/27/16 151 Enalapril Maleate (Enalapril Maleate) 10 Mg Tablet, 10 MG PO DAILY, (Reported) Entered as Reported by: PEARL LANGFORD on 11/27/16 151 Estradiol (Estradiol Tablet) 0.5 Mg Tablet, 0.25 MG PO DAILY, (Reported) Entered as Reported by: PEARL LANGFORD on 11/27/16 151 Hydrochlorothiazide (Hydrochlorothiazide) 25 Mg Tablet, 25 MG PO DAILY, (Reported) Entered as Reported by: PEARL LANGFORD on 11/27/16 151 Hydrocodone Bit/Acetaminophen (HYDROcodone/APAP 10/325 TABLET) 1 Each Tablet, 1 EA PO Q4H PRN for MODERATE PAIN Prescribed by: NIK COOK on 11/29/16 0721 Meclizine Hcl (Antivert 25 Mg) 25 Mg Tablet, 25 MG PO Q6H PRN for DIZZINESS, (Reported) Entered as Reported by: VICTORINA HAYES on 10/16/12 1410 Medroxyprogesterone Acetate (Medroxyprogesterone Acetate) 5 Mg Tablet, 1.25 MG PO DAILY, (Reported) Entered as Reported by: PEARL LANGFORD on 11/27/16 151 Metoprolol Tartrate (Metoprolol Tartrate) 25 Mg Tablet, 25 MG PO BID, (Reported) Entered as Reported by: PEARL LANGFORD on 11/27/16 151 Multivitamins (Multivitamins) 1 Each Capsule, 1 TAB PO DAILY, (Reported) Entered as Reported by: LISY MONTES on 10/25/11 0436 Omeprazole (Omeprazole) 20 Mg Capsule.dr, 20 MG PO HS, (Reported) Entered as Reported by: PEARL LANGFORD on 11/27/16 1514 Ondansetron (Ondansetron Odt) 4 Mg Tab.rapdis, 4 MG SL Q4H PRN for NAUSEA/VOMITING Prescribed by: ASHLEY CUELLO on 05/28/22 2320 Ondansetron HCl (Zofran) 8 Mg Tablet, 8 MG PO Q6H Prescribed by: TOMMY GARCIA on 10/02/18 000 Polyethylene Glycol (Miralax 17 Gm Packet) 17 Gm Pack, 17 GM PO DAILY PRN for CONSTIPATION, (Reported) Entered as Reported by: VICTORINA HAYES on 10/16/12 1410 Prednisone (Prednisone) 5 Mg Tablet, 5 MG PO UD Prescribed by: TOMMY GARCIA on 10/02/18 000 Scopolamine (Transderm-Scop) 1 Each Patch.td72, 1 EACH TD Q72 HOURS Prescribed by: TOMMY GARCIA on 10/02/18 000 Terazosin HCl (Terazosin HCl) 2 Mg Capsule, 2 MG PO HS, (Reported) Entered as Reported by: PEARL LANGFORD on 11/27/16 1514 Tramadol HCl (Tramadol HCl) 50 Mg Tablet, 50 MG PO Q6H PRN for PAIN, (Reported) Entered as Reported by: JUSTIN SANDOVAL on 11/15/16 1023 Review of Systems Review of Systems Constitutional: see HPI EENTM: see HPI Respiratory: no symptoms reported Cardiovascular: no symptoms reported Gastrointestinal: see HPI Genitourinary: no symptoms reported : No Musculoskeletal: no symptoms reported Skin: no symptoms reported Psychiatric/Neurological: See HPI Hematologic/Lymphatic: No Symptoms Reported Immunological/Allergic: see HPI Past Txiuzdg-Qxjtwz-Ahwoie Hx Patient Social History Tobacco Use?: No Use of E-Cig and/or Vaping dev: No Substance use?: No Alcohol Use?: No Immunizations Up To Date Tetanus Booster (TDap): Unknown Influenza Vaccine Up-to-Date: Yes; Up-to-Date Seasonal Allergies Seasonal Allergies: Yes Past Medical History Surgeries: Yes (TOTAL RIGHT KNEE REPLACEMENT) Joint Replacement, Orthopedic Respiratory: No Cardiac: Yes High Cholesterol, Hypertension Neurological: Yes Multiple Sclerosis, Vertigo 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 Sexually Transmitted Disease: No HIV/AIDS: No Genitourinary: Yes Neurogenic Bladder Gastrointestinal: Yes Gastroesophageal Reflux, Chronic Constipation, Pancreatitis Musculoskeletal: Yes (MS, OSTOARTHRITIS LEFT KNEE, SCIATIC PAIN RIGHT LEG) Arthritis, Chronic Back Pain Endocrine: No HEENT: Yes (GLASSES) Loss of Vision: Bilateral Hearing Impairment: Denies Cancer: No Psychosocial: Yes Anxiety, Depression Integumentary: No Blood Disorders: No Adverse Reaction/Blood Tranf: No (N/A) Family Medical History Cardiovascular disease 19 FATHER Hypercholesterolemia 19 MOTHER Hypertension 19 MOTHER LEUKEMIA G8 SISTER Myocardial infarction 19 FATHER G8 BROTHER No Pertinent Family Hx Physical Exam Vital Signs Vital Signs - First Documented 05/28/22 20:18 Temp 36.2 Pulse 66 Resp 16 B/P (MAP) 100/69 (79) Pulse Ox 98 Capillary Refill : Height, Weight, BMI Height: 5'11.00" Weight: 250lbs. 5.0oz. 113.732909ef; 27.00 BMI Method:Stated General Appearance: No Apparent Distress, WD/WN HEENT: PERRL/EOMI, TMs Normal, Normal ENT Inspection, Pharynx Normal, Other (Sinuses nontender) Neck: Normal Inspection Respiratory: Lungs Clear, Normal Breath Sounds, No Accessory Muscle Use, No Respiratory Distress Cardiovascular: Regular Rate, Rhythm, No Edema, No Murmur Gastrointestinal: Normal Bowel Sounds, Non Tender, Soft Extremity: Normal Inspection, No Pedal Edema Neurologic/Psychiatric: Alert, Oriented x3, No Motor/Sensory Deficits, Normal Mood/Affect Skin: Normal Color, Warm/Dry Progress/Results/Core Measures Suspected Sepsis SIRS Temperature: Pulse: 66 Respiratory Rate: 16 Laboratory Tests 05/28/22 21:45: White Blood Count 7.3 Blood Pressure 100 /69 Mean: 79 Laboratory Tests 05/28/22 21:45: Creatinine 0.78, Platelet Count 248 Results/Orders Lab Results Laboratory Tests Test 05/28/22 21:41 05/28/22 21:45 Range/Units Urine Color YELLOW Urine Clarity CLEAR Urine pH 6.0 5-9 Urine Specific [place] 1.025 H 1.016-1.022 Urine Protein NEGATIVE NEGATIVE Urine Glucose (UA) NEGATIVE NEGATIVE Urine Ketones 1+ H NEGATIVE Urine Nitrite NEGATIVE NEGATIVE Urine Bilirubin NEGATIVE NEGATIVE Urine Urobilinogen 1.0 < = 1.0 MG/DL Urine Leukocyte Esterase NEGATIVE NEGATIVE Urine RBC (Auto) NEGATIVE NEGATIVE Urine RBC NONE /HPF Urine WBC 2-5 /HPF Urine Squamous Epithelial Cells 0-2 /HPF Urine Renal Epithelial Cells NONE /HPF Urine Crystals NONE /LPF Urine Bacteria NEGATIVE /HPF Urine Casts NONE /LPF Urine Mucus MODERATE H /LPF Urine Culture Indicated NO Influenza Type A (RT-PCR) Not Detected Not Detecte Influenza Type B (RT-PCR) Not Detected Not Detecte SARS-CoV-2 RNA (RT-PCR) Not Detected Not Detecte White Blood Count 7.3 4.3-11.0 10^3/uL Red Blood Count 4.88 3.80-5.11 10^6/uL Hemoglobin 14.0 11.5-16.0 g/dL Hematocrit 43 35-52 % Mean Corpuscular Volume 87 80-99 fL Mean Corpuscular Hemoglobin 29 25-34 pg Mean Corpuscular Hemoglobin Concent 33 32-36 g/dL Red Cell Distribution Width 13.4 10.0-14.5 % Platelet Count 248 130-400 10^3/uL Mean Platelet Volume 10.2 9.0-12.2 fL Immature Granulocyte % (Auto) 0 % Neutrophils (%) (Auto) 84 H 42-75 % Lymphocytes (%) (Auto) 9 L 12-44 % Monocytes (%) (Auto) 6 0-12 % Eosinophils (%) (Auto) 0 0-10 % Basophils (%) (Auto) 0 0-10 % Neutrophils # (Auto) 6.1 1.8-7.8 10^3/uL Lymphocytes # (Auto) 0.7 L 1.0-4.0 10^3/uL Monocytes # (Auto) 0.5 0.0-1.0 10^3/uL Eosinophils # (Auto) 0.0 0.0-0.3 10^3/uL Basophils # (Auto) 0.0 0.0-0.1 10^3/uL Immature Granulocyte # (Auto) 0.0 0.0-0.1 10^3/uL Sodium Level 140 135-145 MMOL/L Potassium Level 3.2 L 3.6-5.0 MMOL/L Chloride Level 100 98-107 MMOL/L Carbon Dioxide Level 28 21-32 MMOL/L Anion Gap 12 5-14 MMOL/L Blood Urea Nitrogen 11 7-18 MG/DL Creatinine 0.78 0.60-1.30 MG/DL Estimat Glomerular Filtration Rate 83 BUN/Creatinine Ratio 14 Glucose Level 132 H 70-105 MG/DL Calcium Level 9.9 8.5-10.1 MG/DL Magnesium Level 2.0 1.6-2.4 MG/DL My Orders Orders - ASHLEY OLVERA MD Basic Metabolic Panel (05/28/22 21:24) Cbc With Automated Diff (05/28/22:24) Magnesium (05/28/22 21:24) Ua Culture If Indicated (05/28/22:24) Covid 19 Inhouse Test (05/28/22:24) Influenza A And B By Pcr (05/28/22:24) Ed Iv/Invasive Line Start (05/28/22:24) Ondansetron Injection (Zofran Injectio (05/28/22 22:15) Potassium Chloride (Tablet) (Klor Con Ta (05/28/22 22:15) Ns Iv 500 Ml (Sodium Chloride 0.9%) (05/28/22 22:15) Methylprednisolone Sod Succ (Solu-Medrol (05/28/22 23:00) Methylprednisolone Sod Succ (Solu-Medrol (05/28/22 23:05) Ns (Ivpb) (Sodium Chloride 0.9% Ivpb Bag (05/28/22 23:06) Medications Given in ED Current Medications Medications Dose Ordered Sig/Keon Route Start Time Stop Time Status Last Admin Dose Admin Methylprednisolone Sodium Succinate 125 mg STK-MED ONCE .ROUTE 05/28/22 23:05 05/28/22 23:09 DC 05/28/22 23:15 500 MG Ondansetron HCl 4 mg ONCE ONCE IVP 05/28/22 22:15 05/28/22 22:16 DC 05/28/22 22:22 4 MG Potassium Chloride 20 meq ONCE ONCE PO 05/28/22 22:15 05/28/22 22:16 DC 05/28/22 22:22 20 MEQ Sodium Chloride 50 ml @ ud STK-MED ONCE .ROUTE 05/28/22 23:06 05/28/22 23:09 DC 05/28/22 23:15 100 MLS/HR Sodium Chloride 500 ml @ 0 mls/hr Q0M ONCE IV 05/28/22 22:15 05/28/22 22:16 DC 05/28/22 22:22 0 MLS/HR Vital Signs/I&O 05/28/22 05/28/22 20:18 23:50 Temp 36.2 Pulse 66 63 Resp 16 B/P (MAP) 100/69 (79) 122/67 Pulse Ox 98 97 05/29/22 00:00 Intake Total 500 ml Balance 500 ml Capillary Refill : Blood Pressure Mean: 79 Progress Note : Progress Note COVID swab was negative. There were ketones and high specific gravity noted on urinalysis. She was hydrated with a 500 mL bag of normal saline. Potassium was replaced orally after treating nausea with Zofran. We discussed treatment for MS flare. Since we are initiating therapy in the night instead of care management associate, I am suggesting not giving the full 1 g dose of Solu-Medrol. Instead, we will use a 500 mg dose. Patient is to contact Dr. Epps in the morning to discuss continuation of steroid therapy at his discretion. See discharge instructions for further discussion. Departure Impression Primary Impression: Multiple sclerosis exacerbation Additional Impressions: Hypokalemia Nausea Facial pain Disposition: HOME, SELF-CARE Condition: Improved Departure-Patient Inst. Decision time for Depature: 23:18 Referrals: GERSON EPPS MD (PCP/Family) Primary Care Physician Patient Instructions: Multiple Sclerosis in Adults, Hypokalemia Add. Discharge Instructions: Please contact Dr. Epps's office tomorrow morning to discuss how to proceed with further steroid therapy. He may recommend continuing with outpatient IV therapies versus converting you to oral medications. Start with a clear liquid diet and gradually advance your diet with small quantities of bland food as tolerated. Drink plenty of noncarbonated clear liquids. Use Zofran (ondansetron) as prescribed for nausea and vomiting. Call Dr. Epps with questions or concerns. Return to the ER if you have worsening symptoms despite following these instructions. All discharge instructions reviewed with patient and/or family. Voiced understanding. Scripts Ondansetron (Ondansetron Odt) 4 Mg Tab.rapdis 4 MG SL Q4H PRN for NAUSEA/VOMITING, #10 TAB Prov: ASHLEY OLVERA MD 05/28/22 Copy Copies To 1: GERSON EPPS MD, JOSHUA T MD May 28, 2022:20
[2022-05-28 23:50] VITALS: BP 122/67
== END 2022-05-28 23:56 | disposition home or self-care (01) ==
LOC: EDUNIT# 19:18 → ER 19:19
DX: G35 Multiple sclerosis (principal); E87.6 Hypokalemia; R51.9 Headache, unspecified; R11.0 Nausea; Z20.822 Contact with and (suspected) exposure to COVID-19
CPT/HCPCS: 36415; 80048; 81000; 83735; 85025; 87636

== ENCOUNTER → 2022-06-08 | Outpatient (CLI) | payer MEDICARE, OTHER ==
[~2022-06-08] MED LIST changes: +ONDA4TAB11 SL
--- NOTE | 2022-06-12 10:24 | Diagnostic Imaging Report ---
INDICATION: Routine screening. Comparison is made with prior mammogram from 05/10/2021 and 05/11/2019. 2-D and 3-D bilateral screening mammography was performed with CAD. CAD is utilized. The current study was also evaluated with a Computer Aided Detection (CAD) system. Scattered fibroglandular densities are identified bilaterally. The parenchymal pattern is stable. No mass or malignant-appearing microcalcifications are seen. There are scattered benign calcifications noted. Axillae are unremarkable. IMPRESSION: BI-RADS Category 2 No mammographic features suspicious for malignancy are identified. ACR BI-RADS Category 2: Benign findings. Result letter will be mailed to the patient. Note: At least 10% of breast cancer is not imaged by mammography. Dictated by: Dictated on workstation # [id number]
== END ==
LOC: RAD 14:45
PROVIDERS: ATTEND Internal Medicine
DX: Z12.31 Encounter for screening mammogram for malignant neoplasm of breast (principal)
CPT/HCPCS: 77063; 77067

== ENCOUNTER 2023-02-20 05:33 | Outpatient (CLI) | payer MEDICARE, OTHER ==
[~2023-02-20] VITALS: Ht 180.3 cm; Wt 89.6 kg
[~2023-02-20 05:33] MED LIST changes: -ENAL10TA16 PO; +ENLP10T PO
[2023-02-20] MEDS ORDERED: LACTATED RINGERS 1,000 ML IV STA (09:50)
[2023-02-20] MEDS ORDERED: CITA10TA9 PO (10:00)
[2023-02-20] MEDS ORDERED: ASPI-1238 PO (10:00)
[2023-02-20] MEDS ORDERED: LIDOCAINE JELLY 2% 6 ML SYRINGE MM PRN (10:00)
[2023-02-20] MEDS ORDERED: AMAN100C20 PO (10:00)
[2023-02-20] MEDS ORDERED: ROSU5TAB13 PO (10:00)
[2023-02-20] MEDS ORDERED: LORA10TA7 PO (10:00)
== END 2023-02-20 09:55 ==
LOC: PREOP 05:33
PROVIDERS: ATTEND Surgery
DX: Z01.818 Encounter for other preprocedural examination (principal); Z12.11 Encounter for screening for malignant neoplasm of colon

== ENCOUNTER 2023-02-27 12:24 | Day surgery (SDC) | payer MEDICARE, OTHER ==
[~2023-02-27] VITALS: Ht 180.3 cm; Wt 89.6 kg
[~2023-02-27 12:24] MED LIST changes: +AMAN100C20 PO; +ASPI-1238 PO; +CITA10TA9 PO; +LORA10TA7 PO; +ROSU5TAB13 PO
--- NOTE | 2023-02-27 12:38 | Progress Note-Pre Operative ---
Pre-Operative Progress Note Date of Available H&P: February 27, 2023 Date H&P Reviewed: February 27, 2023 Time H&P Reviewed: 12:30 History & Physical: No changes noted Pre-Operative Diagnosis: screening o GÉNESIS LORD MD February 27, 2023 12:38
--- NOTE | 2023-02-27 12:40 | Discharge Inst-Surgical ---
D/C Lap Instructions-RISA Follow Up Activity as tolerated High Fiber Diet 25g or more per day Avoid Alcohol, Caffeine, Spicy [place] and Acid foods. Drink 64 fluid oz or more of fluids per day. Symptoms to Report: Fever over 101 degree F, Nausea/Vomiting If any problems/questions: Contact your physician or go to Emergency Room GÉNESIS LORD MD February 27, 2023 12:40
[2023-02-27] MEDS ORDERED: LACTATED RINGERS 1,000 ML IV STA (12:43)
[2023-02-27] MEDS ORDERED: LIDOCAINE JELLY 2% 6 ML SYRINGE MM PRN (12:45)
[2023-02-27] MEDS ORDERED: ONDANSETRON 4 MG (ZOFRAN) ORAL DISSOLVE TAB PO PRN (12:45)
[2023-02-27] MEDS ORDERED: ONDANSETRON 4 MG/2 ML (SDV) Z0FRAN IVP PRN (12:45)
[2023-02-27] MEDS ORDERED: LACTATED RINGERS 1,000 ML IV ONE (12:48)
[2023-02-27 13:38] VITALS: BP 144/71
[2023-02-27] MEDS ORDERED: PROPOFOL INJECTION 50 ML IV ONE (14:50)
[2023-02-27] MEDS ORDERED: LIDOCAINE JELLY 2% 6 ML SYRINGE ONE (14:53)
[2023-02-27 15:25] VITALS: BP 124/63
--- NOTE | 2023-02-27 15:29 | Progress Note-Post Operative ---
Post-Operative Progess Note Surgeon (s)/Commercial Assistant (s) Surgeon GÉNESIS LORD MD Commercial Assistant: none Pre-Operative Diagnosis screening colo Post-Operative Diagnosis mild sigmoid diverticulosis. Procedure & Operative Findings Date of Procedure 02/27/23 Procedure Performed/Findings colonoscopy Anesthesia Type mac Estimated Blood Loss Estimated blood loss (mL): minimal Specimens/Packing Specimens Removed none GÉNESIS LORD MD February 27, 2023 15:29
[2023-02-27 15:43] VITALS: BP 124/63
--- NOTE | 2023-02-27 17:51 | Anesthesia-General Post-Op ---
MAC Patient Condition Mental Status/LOC: Same as Preop Cardiovascular: Satisfactory Nausea/Vomiting: Absent Respiratory: Satisfactory Pain: Controlled Complications: Absent Post Op Complications Complications None Follow Up Care/Instructions Patient Instructions None needed. Anesthesiology Discharge Order Discharge Order Patient is doing well, no complaints, stable vital signs, no apparent adverse anesthesia problems. No complications reported per nursing. MANUELA MATHEWS CRNA February 27, 2023 17:51
--- NOTE | 2023-02-27 21:35 | OPERATIVE REPORT ---
DATE OF SERVICE: 02/27/2023 ATTENDING PRIMARY CARE PHYSICIAN: Dr. Nick De La Paz. PREOPERATIVE DIAGNOSIS: Screening colonoscopy. POSTOPERATIVE DIAGNOSIS: Mild sigmoid diverticulosis. PROCEDURE: Colonoscopy. SURGEON: Génesis Lord MD ANESTHESIA: Monitored anesthesia care. ESTIMATED BLOOD LOSS: Minimal. FINDINGS: Mild sigmoid diverticulosis. DISPOSITION: The patient tolerated the procedure well. INDICATIONS: The patient is a 67-year-old female referred over to us for screening colonoscopy. Her last one was 13 years ago and she believes this to be normal. She does report occasional episodes of constipation, which she is able to manage with a change in diet or fiber supplementation. She does not report any red blood per rectum, nor any dark tarry stools. She also underwent a Cologuard test approximately 3 years ago, which was normal. She does not report any family history of colon cancer. DESCRIPTION OF PROCEDURE: The patient was brought to the endoscopy suite and laid in the left lateral decubitus position. After adequate IV pain and sedative medications and monitored anesthesia care, a digital rectal examination was performed. No significant hemorrhoids identified and normal sphincter tone was felt and there were no palpable masses. The endoscope was then intubated into the anus, rectum gently insufflated. The endoscope was then advanced through the valves of [place] of the rectum with no polyps or any neoplasms identified. We then proceeded through the sigmoid colon where a mild sigmoid diverticulosis identified. The endoscope was then advanced through the remainder of the descending, transverse and ascending colon to the cecum, which were normal. No polyps or any neoplasms identified throughout the colon or rectum. The endoscope was then slowly withdrawn while taking a second look and suctioning of residual air with no additional findings. The patient tolerated the procedure well. We will recommend continued medical management with a high-fiber diet with at least 25 grams of fiber daily as well as significant amounts of water to promote soft stools on a daily basis. If she is asymptomatic, she does not need another colonoscopy for another 10 years. Job ID: [id number] DocumentID: [id number] Dictated Date: 02/27/2023 15:24:28 Hospital Coder Date: 02/27/2023 21:33:00 Dictated By: GÉNESIS LORD MD
== END 2023-02-27 16:00 | disposition home or self-care (01) ==
LOC: ENDO 12:24
PROVIDERS: ATTEND Surgery
DX: Z12.11 Encounter for screening for malignant neoplasm of colon (principal); K57.30 Diverticulosis of large intestine without perforation or abscess without bleeding; K21.9 Gastro-esophageal reflux disease without esophagitis